=== PATIENT | male | born 1990 | race Two or more races ===

== ENCOUNTER 2021-11-06 04:21 | Emergency (ER) | payer SELFPAY ==
[2021-11-06] VITALS (8 sets, daily range): BP systolic 103–134; BP diastolic 38–84; PULSE 57–77; RESP 16; TEMP 36.8–37.3; O2SAT 98–99; BMI 26.4
--- NOTE | ~2021-11-06 | CT_ITS ---
EXAMINATION: CT HEAD WITHOUT CONTRAST CLINICAL INFORMATION: Fall. Loss of consciousness. COMPARISON: 05/04/2021 TECHNIQUE: Contiguous axial imaging was performed from the skull base to vertex without intravenous administration of contrast. This CT examination was performed using dose optimization techniques as appropriate, variously including the following: *Automated exposure control *Adjustment of mA and/or kV according to patient size (this includes techniques or standardized protocols for targeted exams where dose is matched to indication/reason for exam; i.e. extremities or head) *Use of iterative reconstruction technique DLP: 669 mGy-cm FINDINGS: There is no evidence of acute intracranial hemorrhage or territorial infarction. No abnormal mass effect or midline shift is seen. Ramirez to white matter differentiation is well preserved. No extra-axial fluid collections are identified. The ventricles are normal in size. There is no abnormal attenuation within the brain parenchyma. The osseous structures and soft tissues are normal. The mastoid air cells and visualized portions of the paranasal sinuses are well aerated. CT/CT head/brain wo con IMPRESSION: No acute intracranial pathology.
--- NOTE | 2021-11-06 05:29 | ECG_ITS ---
Test Reason : NAUSEA/VOMITING Blood Pressure : / mmHG Vent. Rate : 063 BPM Atrial Rate : 063 BPM P-R Int : 144 ms QRS Dur : 090 ms QT Int : 386 ms P-R-T Axes : 025 025 015 degrees QTc Int : 395 ms Normal sinus rhythm Normal ECG No previous ECGs available Referred By: Ashly Echols Electronically Signed By:Tayo Salazar
--- NOTE | 2021-11-06 05:37 | ED.GENADULT ---
HPI - General Adult General Chief complaint: General Medical Stated complaint: N/V AFTER TAKING NEW MED Time Seen by Provider: 11/06/21 05:29 Source: patient and EMS Mode of arrival: EMS Limitations: no limitations History of Present Illness HPI narrative: Patient comes to the emergency room via EMS complaining of a syncopal episode and vomiting blood. Patient states that he has had multiple dental procedures over the last couple of weeks, currently taking amoxicillin for a tooth infection. Patient states that today he had multiple episodes of vomiting, 1 of those it was with blood. Patient freaked out and passed out. Hit the floor. Patient states that his grandmother called EMS. Related Data Allergies Allergy/AdvReac Type Severity Reaction Status Date / Time pineapple [Pineapple] Allergy Unknown HIVES Unverified 02/08/20 16:12 Pineapples Allergy Unknown Uncoded 03/10/11 00:00 Review of Systems Review of Systems: Constitutional : No Weight loss, No Fever, No Chills, No Night Sweats, No Fatigue, No Malaise ENT/Mouth : No Hearing loss, No Ear Pain, No Nasal Congestion, No Sinus Pain, No Hoarseness, No sore throat, No Rhinorrhea, No Swallowing Difficulty, complaining of tooth pain, currently on antibiotics, oxacillin. Eyes: No Eye Pain, No Swelling, No Redness, No Foreign Body, No Discharge, No Vision Changes Cardiovascular : No Chest Pain, No SOB, No Dyspnea on Exertion, No Orthopnea, No Edema, No Palpitations Respiratory : No Cough, No Sputum, No Wheezing, No Smoke Exposure, No Dyspnea Gastrointestinal : Complaining of nausea vomiting, No Diarrhea, No Constipation, No abdominal Pain, No Hematochezia, No Melena Genitourinary : no irregular bleeding, No Dysuria, No Urinary Frequency, No Hematuria, No Urinary Incontinence, No Urgency, No Flank Pain, No Urinary Flow Changes, No Hesitancy Musculoskeletal : No joint pain, No Myalgias, No Joint Swelling Skin : No Skin Lesions, No rash Neuro : No Weakness, No Numbness, No Paresthesias, reports a syncopal episode this morning, No Dizziness, No Headache Psych : No Anxiety/Panic, No Depression, No SI/HI/AH/VH, No Social Issues, Heme/Lymph: No Bruising, No Bleeding,No Lymphadenopathy Endocrine : No Polyuria, No Polydipsia, No Temperature Intolerance PMFSH Social History Social History Advance Directives: No Advance Directives Information Provided: Yes Physical Exam ED Vital Signs: Vital Signs - 24 hr 11/06/21 04:27 11/06/21 05:49 11/06/21 05:49 Temperature 99.2 F 98.3 F Pulse Rate 70 65 59 Respiratory Rate 16 16 Blood Pressure 134/60 114/49 L 115/40 L Pulse Oximetry 99 98 Oxygen Delivery Method Room Air Room Air 11/06/21 05:51 11/06/21 05:52 Temperature Pulse Rate 60 77 Respiratory Rate Blood Pressure 113/53 L 103/65 Pulse Oximetry Oxygen Delivery Method BMI result Body Mass Index 26.4 Const Other: Appearance: Alert. Oriented X3. No acute distress. Well-appearing Eyes: Pupils equal, round and reactive to light. ENT: Pharynx normal. Missing several teeth, no abscesses were visualized Neck: Normal inspection. Neck supple. No lymph nodes noted. No crepitus CVS: Normal heart rate and rhythm. Pulses normal. Normal S1 and S2 Respiratory: No respiratory distress. Breath sounds normal. No Wheezing. No rales Abdomen: Soft and nontender. No rigidity. No distention. Skin: Skin warm and dry. Normal skin color. Normal skin turgor. Extremities: No lower extremity edema. No Lacerations. No Rash Neuro: Oriented X 3. No motor deficit. No sensory deficit. Moving all extremities. No slurred speech. CN 2 through 12 grossly intact Psych: calm, cooperative, normal affect Course Course Course Narrative: Symptoms patient had multiple episodes of vomiting secondary to taking amoxicillin. It is possible the forceful vomiting caused pt to movement x1 blood. In the ED patient has not had any episodes of vomiting blood. Is likely that patient had a vasovagal episode Which possibly to cough out. Off patient's labs are pending. sign out given to Dr. Flores Medical Decision Making Lab Data Result diagrams: 11/06/21 05:59 11/06/21 05:59 Labs: Lab Results 11/06/21 11/06/21 11/06/21 Range/Units 05:59 05:59 05:59 WBC 12.1 H (4.8-10.8) X10*3/uL RBC 5.44 (4.60-5.80) X10*6/uL Hgb 15.8 (14.0-18.0) g/dl Hct 46.6 (42.0-52.0) % MCV 85.7 (80.0-98.0) fL MCH 29.0 (27.0-33.0) pg MCHC 33.9 (31.0-36.0) g/dl RDW 11.7 (11.0-16.0) % Plt Count 257 (160-400) X10*3/uL MPV 9.7 (9.4-12.4) fL Immature Gran % (Auto) 0.2 (0.0-0.4) % Neut % (Auto) 64.2 (45-73) % Lymph % (Auto) 15.9 L (20-40) % [place] % (Auto) 6.3 (2-11) % Eos % (Auto) 13.0 H (0-4) % Baso % (Auto) 0.4 (0-2) % Lymph # (Auto) 1.9 (1.2-4.9) X10*3/uL [place] # (Auto) 0.8 (0.1-1.2) X10*3/uL Eos # (Auto) 1.6 H (0.0-0.4) X10*3/uL Baso # (Auto) 0.1 (0.0-0.2) X10*3/uL Abs Immat Gran (auto) 0.03 (0.00-0.03) X10*3/uL Absolute Neuts (auto) 7.8 (2.0-8.3) x10*3/uL Absolute Nucleated RBC 0.000 (0.0-0.012) X10*3/uL Nucleated RBC % (auto) 0.0 (0.0-0.2) /100WBC PT 12.5 (9.9-13.0) SEC INR 1.1 (0.9-1.1) Sodium 138 (135-145) mmol/L Potassium 3.7 (3.3-5.1) mmol/L Chloride 103 (96-108) mmol/L Carbon Dioxide 28 (22-29) mmol/L Anion Gap 11 L (12-20) BUN 12 (9-16) mg/dL Creatinine 1.11 (0.5-1.4) mg/dL Estim Creat Clear Calc 104.5 Estimated GFR > 60 Random Glucose 118 H (60-115) mg/dL Calcium 9.7 (8.4-10.2) mg/dL Total Bilirubin 0.5 (0.0-1.0) mg/dL Direct Bilirubin 0.2 (0.0-0.5) mg/dL AST 12 (5-37) U/L ALT 31 (0-40) U/L Alkaline Phosphatase 77 (39-117) U/L Troponin I High Sens (<3.5-35.0) ng/L Total Protein 7.4 (6.5-8.0) g/dL Albumin 4.5 (3.5-5.0) g/dL Ethyl Alcohol mg/dL 11/06/21 11/06/21 Range/Units 05:59 05:59 WBC (4.8-10.8) X10*3/uL RBC (4.60-5.80) X10*6/uL Hgb (14.0-18.0) g/dl Hct (42.0-52.0) % MCV (80.0-98.0) fL MCH (27.0-33.0) pg MCHC (31.0-36.0) g/dl RDW (11.0-16.0) % Plt Count (160-400) X10*3/uL MPV (9.4-12.4) fL Immature Gran % (Auto) (0.0-0.4) % Neut % (Auto) (45-73) % Lymph % (Auto) (20-40) % [place] % (Auto) (2-11) % Eos % (Auto) (0-4) % Baso % (Auto) (0-2) % Lymph # (Auto) (1.2-4.9) X10*3/uL [place] # (Auto) (0.1-1.2) X10*3/uL Eos # (Auto) (0.0-0.4) X10*3/uL Baso # (Auto) (0.0-0.2) X10*3/uL Abs Immat Gran (auto) (0.00-0.03) X10*3/uL Absolute Neuts (auto) (2.0-8.3) x10*3/uL Absolute Nucleated RBC (0.0-0.012) X10*3/uL Nucleated RBC % (auto) (0.0-0.2) /100WBC PT (9.9-13.0) SEC INR (0.9-1.1) Sodium (135-145) mmol/L Potassium (3.3-5.1) mmol/L Chloride (96-108) mmol/L Carbon Dioxide (22-29) mmol/L Anion Gap (12-20) BUN (9-16) mg/dL Creatinine (0.5-1.4) mg/dL Estim Creat Clear Calc Estimated GFR Random Glucose (60-115) mg/dL Calcium (8.4-10.2) mg/dL Total Bilirubin (0.0-1.0) mg/dL Direct Bilirubin (0.0-0.5) mg/dL AST (5-37) U/L ALT (0-40) U/L Alkaline Phosphatase (39-117) U/L Troponin I High Sens < 3.5 (<3.5-35.0) ng/L Total Protein (6.5-8.0) g/dL Albumin (3.5-5.0) g/dL Ethyl Alcohol < 10 mg/dL Discharge Plan Discharge Clinical Impression: Syncope, vasovagal Patient Disposition: Still a Patient
[2021-11-06] MEDS: 0.9 % Sodium Chloride 1,000 ML 999 ML IVCONT (06:02)
[2021-11-06] MEDS: ondansetron HCL 4 MG/2 ML VIAL IVPUSH (06:03)
[2021-11-06] MEDS: Pantoprazole Sodium 40 MG/10 ML VIAL IVPUSH (06:03)
[2021-11-06 06:04] LABS: Basophils Absolute Auto 0.1 X10*3/uL (0.0-0.2); Basophils Percent Auto 0.4 % (0-2); Eosinophils Absolute Auto 1.6 X10*3/uL (0.0-0.4); Hematocrit 46.6 % (42.0-52.0); Hemoglobin 15.8 g/dl (14.0-18.0); Imm Gran Abs Auto 0.03 X10*3/uL (0.00-0.03); Imm Gran Pct Auto 0.2 % (0.0-0.4); Lymphocytes Absolute Auto 1.9 X10*3/uL (1.2-4.9); Lymphocytes Percent Auto 15.9 % (20-40); MANUAL DIFF FLAG NO; Mean Corpuscular HGB Conc 33.9 g/dl (31.0-36.0); Mean Corpuscular Volume 85.7 fL (80.0-98.0); Mean Platelet Volume 9.7 fL (9.4-12.4); Monocytes Absolute Auto 0.8 X10*3/uL (0.1-1.2); Monocytes Percent Auto 6.3 % (2-11); Neutrophils Absolute Auto 7.8 x10*3/uL (2.0-8.3); Neutrophils Percent Auto 64.2 % (45-73); Platelet Count 257 X10*3/uL (160-400); Red Blood Count 5.44 X10*6/uL (4.60-5.80); Red Cell Distribution Width 11.7 % (11.0-16.0); White Blood Count 12.1 X10*3/uL (4.8-10.8)
[2021-11-06 06:11] LABS: INTERNATIONAL NORM RATIO 1.1 (0.9-1.1); Prothrombin Time 12.5 SEC (9.9-13.0)
[2021-11-06 06:20] LABS: Ethanol < 10 mg/dL
[2021-11-06 06:27] LABS: Troponin-I High Sensitivity < 3.5 ng/L (<3.5-35.0)
[2021-11-06 06:28] LABS: Alanine Aminotransferase 31 U/L (0-40); Albumin Level 4.5 g/dL (3.5-5.0); Alkaline Phosphatase 77 U/L (39-117); Anion Gap 11 (12-20); Aspartate Amino Transferase 12 U/L (5-37); Bilirubin Direct 0.2 mg/dL (0.0-0.5); Bilirubin Total 0.5 mg/dL (0.0-1.0); Blood Urea Nitrogen 12 mg/dL (9-16); Calcium 9.7 mg/dL (8.4-10.2); Carbon Dioxide 28 mmol/L (22-29); Chloride 103 mmol/L (96-108); Creatinine Clr Calc Pharmacy 104.5; Estimated Glomerular Filt Rate > 60; Glucose Random 118 mg/dL (60-115); Potassium 3.7 mmol/L (3.3-5.1); Sodium 138 mmol/L (135-145); Total Protein 7.4 g/dL (6.5-8.0)
== END 2021-11-06 07:55 | disposition home or self-care (01) ==
PROVIDERS: Emergency Provider Emergency Medicine
DX: R55 Syncope and collapse (principal); R11.2 Nausea with vomiting, unspecified
CPT/HCPCS: 36415; 70450; 80048; 80076; 82077; 84484; 85025; 85610; 93005; 96361; 96374; 96375; 99284; J2405

== ENCOUNTER → 2022-01-30 09:58 | Outpatient (BNVA) | payer MEDICAID, SELFPAY | PROVIDERS: Visit Provider Nurse Practitioner Psychiatric/Mental Health | DX: Z51.81 Encounter for therapeutic drug level monitoring (principal); F11.20 Opioid dependence, uncomplicated; F14.10 Cocaine abuse, uncomplicated | CPT/HCPCS: 99212 ==

== ENCOUNTER → 2022-02-06 10:10 | Outpatient (BNVA) | payer MEDICAID, SELFPAY | PROVIDERS: Visit Provider Nurse Practitioner Psychiatric/Mental Health | DX: F11.20 Opioid dependence, uncomplicated (principal) | CPT/HCPCS: 80305; 99212 ==

== ENCOUNTER → 2022-02-13 10:03 | Outpatient (BNVA) | payer MEDICAID, SELFPAY | PROVIDERS: Visit Provider Nurse Practitioner Psychiatric/Mental Health | DX: F11.20 Opioid dependence, uncomplicated (principal); F14.10 Cocaine abuse, uncomplicated; Z51.81 Encounter for therapeutic drug level monitoring; Z79.899 Other long term (current) drug therapy | CPT/HCPCS: 80305; 99212 ==

== ENCOUNTER → 2022-02-20 11:29 | Outpatient (BNVA) | payer MEDICAID, SELFPAY | PROVIDERS: Visit Provider Nurse Practitioner Psychiatric/Mental Health | DX: F11.20 Opioid dependence, uncomplicated (principal) | CPT/HCPCS: 80305; 99212 ==

== ENCOUNTER → 2022-02-27 11:07 | Outpatient (BNVA) | payer MEDICAID, SELFPAY | PROVIDERS: Visit Provider Nurse Practitioner Psychiatric/Mental Health | DX: Z51.81 Encounter for therapeutic drug level monitoring (principal); F11.20 Opioid dependence, uncomplicated | CPT/HCPCS: 80305; 99212 ==

== ENCOUNTER → 2022-03-09 11:00 | Outpatient (BNVA) | payer MEDICAID, SELFPAY | PROVIDERS: Visit Provider Nurse Practitioner Psychiatric/Mental Health | DX: Z51.81 Encounter for therapeutic drug level monitoring (principal); F11.90 Opioid use, unspecified, uncomplicated | CPT/HCPCS: 99212 ==

== ENCOUNTER → 2022-03-20 11:41 | Outpatient (BNVA) | payer MEDICAID, SELFPAY | PROVIDERS: Visit Provider Nurse Practitioner Psychiatric/Mental Health | DX: Z51.81 Encounter for therapeutic drug level monitoring (principal); F11.20 Opioid dependence, uncomplicated | CPT/HCPCS: 80305; 99212 ==

== ENCOUNTER → 2022-04-02 09:02 | Outpatient (BNVA) | payer MEDICAID, SELFPAY | PROVIDERS: Visit Provider Nurse Practitioner Psychiatric/Mental Health | DX: Z51.81 Encounter for therapeutic drug level monitoring (principal); F11.20 Opioid dependence, uncomplicated | CPT/HCPCS: 99212 ==

== ENCOUNTER → 2022-04-13 10:09 | Outpatient (BNVA) | payer MEDICAID, SELFPAY | PROVIDERS: Visit Provider Nurse Practitioner Psychiatric/Mental Health | DX: F11.20 Opioid dependence, uncomplicated (principal); Z51.81 Encounter for therapeutic drug level monitoring; Z79.01 Long term (current) use of anticoagulants | CPT/HCPCS: 99212 ==

== ENCOUNTER → 2022-04-29 11:32 | Outpatient (BNVA) | payer MEDICAID, SELFPAY | PROVIDERS: Visit Provider Nurse Practitioner Psychiatric/Mental Health | DX: F11.20 Opioid dependence, uncomplicated (principal) | CPT/HCPCS: 80305; 99212 ==

== ENCOUNTER → 2022-05-15 11:42 | Outpatient (BNVA) | payer MEDICAID, SELFPAY | PROVIDERS: Visit Provider Nurse Practitioner Psychiatric/Mental Health | DX: F11.20 Opioid dependence, uncomplicated (principal) | CPT/HCPCS: 99212 ==

== ENCOUNTER → 2022-06-05 13:18 | Outpatient (BNVA) | payer MEDICAID, SELFPAY | PROVIDERS: Visit Provider Nurse Practitioner Psychiatric/Mental Health | DX: F11.20 Opioid dependence, uncomplicated (principal); F14.10 Cocaine abuse, uncomplicated | CPT/HCPCS: 99212 ==

== ENCOUNTER → 2022-06-26 13:18 | Outpatient (BNVA) | payer MEDICAID, SELFPAY | PROVIDERS: Visit Provider Nurse Practitioner Psychiatric/Mental Health | DX: F11.20 Opioid dependence, uncomplicated (principal); F14.10 Cocaine abuse, uncomplicated; F32.A Depression, unspecified; F41.1 Generalized anxiety disorder | CPT/HCPCS: 99212 ==

== ENCOUNTER → 2022-07-17 14:37 | Outpatient (BNVA) | payer MEDICAID, SELFPAY | PROVIDERS: Visit Provider Nurse Practitioner Psychiatric/Mental Health | DX: F11.20 Opioid dependence, uncomplicated (principal); F14.10 Cocaine abuse, uncomplicated; F32.A Depression, unspecified; F41.1 Generalized anxiety disorder | CPT/HCPCS: 80305; 99212 ==

== ENCOUNTER 2022-09-01 13:30 | Emergency (ER) | payer MEDICAID, SELFPAY ==
[2022-09-01 13:38] VITALS: BP 110/57; PULSE 78; RESP 18; TEMP 36.6; O2SAT 98; BMI 33.5
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
[2022-09-01] MEDS: Diphth,Pertus(ACell),Tet Adult 0.5 ML SYRINGE IM (13:51)
== END 2022-09-01 14:36 | disposition home or self-care (01) ==
PROVIDERS: Emergency Provider Emergency Medicine
DX: S61.412A Laceration without foreign body of left hand, initial encounter (principal); S60.512A Abrasion of left hand, initial encounter; X99.1XXA Assault by knife, initial encounter; Y93.9 Activity, unspecified; Y92.9 Unspecified place or not applicable; Y99.9 Unspecified external cause status; Z79.899 Other long term (current) drug therapy; Z23 Encounter for immunization
CPT/HCPCS: 12002; 90471; 90715; 99282; 99284

== ENCOUNTER → 2022-09-18 15:12 | Outpatient (BNVA) | payer MEDICAID, SELFPAY | PROVIDERS: Visit Provider Nurse Practitioner Psychiatric/Mental Health | DX: F11.90 Opioid use, unspecified, uncomplicated (principal); F14.10 Cocaine abuse, uncomplicated; F32.A Depression, unspecified; F41.1 Generalized anxiety disorder; Z79.899 Other long term (current) drug therapy; Z51.81 Encounter for therapeutic drug level monitoring | CPT/HCPCS: 99212 ==

== ENCOUNTER → 2022-11-10 14:29 | Outpatient (BNVA) | payer MEDICAID, SELFPAY | PROVIDERS: Visit Provider Nurse Practitioner Psychiatric/Mental Health | DX: F11.20 Opioid dependence, uncomplicated (principal); F41.1 Generalized anxiety disorder; Z79.899 Other long term (current) drug therapy | CPT/HCPCS: 80305; 99212 ==

== ENCOUNTER 2023-01-05 16:23 | Outpatient (AMB) | payer MEDICAID, SELFPAY ==
--- NOTE | 2023-01-05 16:23 | MHC.OFFVIS ---
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 Reviewed medication, dosing, side effects and goals of treatment He identifies stress with parents as one motivator for switching to the injection as they often question his engagement in treatment He is working FT at [employer]. Scheduled for 18 [employer] drivers test later this week Sleep has improved, mood has improved--extended vacation in [place] and [facility] Medical History (Updated 11/12/22 @ 10:26 by Lela Marrufo CNP) Opioid use disorder Review of Systems Const Reports as per HPI and Reports no additional complaints Physical Exam Vital Signs: Last Vital Signs Pulse 71 01/05/23 16:29 BP 110/72 01/05/23 16:29 Pulse Ox 98 01/05/23 16:29 Oxygen Delivery Method Room Air 01/05/23 16:29 Const General: cooperative and healthy appearing Psych Appearance: well kempt Speech and movement: Clear speech present Affect: normal affect Attitude: cooperative Thought process: Normal thought process present Thought content: Normal thought content present Insight: Good insight present (Psych) Judgement: Good judgement present (Psych) Assessment & Plan Assessment & Plan (1) Opioid use disorder, severe, in early remission: Code(s): F11.21 - Opioid dependence, in remission Plan: continue suboxone at current dose relaspe prevention discussion follow up 4 weeks sublocade rx ordered (2) KEO (generalized anxiety disorder): Code(s): F41.1 - Generalized anxiety disorder Plan: continue sertraline at 50mg QD continue hydroxyzine PRN and trazodone Medications: New buprenorphine ER (Sublocade) 300 mg (1.5 mL) subcut .q 4 weeks 1.5 mL 1RF Refilled buprenorphine HCl 8 mg sublingual TID 90 tabs 0RF Coding Level of Care Code Est Pt Level 3 (95042) Diagnoses Opioid use disorder, severe, in early remission F11.21 KEO (generalized anxiety disorder) F41.1
[2023-01-05 16:29] VITALS: BP 110/72; PULSE 71; O2SAT 98
== END 2023-01-05 16:50 | disposition home or self-care (01) ==
LOC: HO.HCC 16:23
PROVIDERS: Visit Provider Nurse Practitioner Psychiatric/Mental Health
DX: F11.21 Opioid dependence, in remission (principal); F41.1 Generalized anxiety disorder
CPT/HCPCS: 99213

== ENCOUNTER → 2023-01-05 16:23 | Outpatient (BNVA) | payer MEDICAID, SELFPAY | PROVIDERS: Visit Provider Nurse Practitioner Psychiatric/Mental Health | DX: F11.20 Opioid dependence, uncomplicated (principal); F41.1 Generalized anxiety disorder; Z79.899 Other long term (current) drug therapy | CPT/HCPCS: 99212; 99213 ==

== ENCOUNTER 2023-02-02 13:29 | Outpatient (AMB) | payer MEDICAID, SELFPAY ==
--- NOTE | 2023-02-02 13:30 | AM.OFFVISNUR ---
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
[2023-02-02 13:44] VITALS: BP 124/80; PULSE 78; O2SAT 94
--- NOTE | 2023-02-02 13:44 | MHC.OFFVIS ---
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
--- NOTE | 2023-02-02 13:47 | MHC.OFFVIS ---
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: No Allergies pineapple [Pineapple] Allergy (Unknown, Unverified 02/02/23 13:45) HIVES naloxone Adverse Reaction (Intermediate, Verified 02/02/23 13:45) Vomiting Pineapples Allergy (Unknown, Uncoded 02/02/23 13:45) Unknown [facility] Medical History (Updated 11/12/22 @ 10:26 by Lela Marrufo CNP) Opioid use disorder Physical Exam Vital Signs: Last Vital Signs Pulse 78 02/02/23 13:44 BP 124/80 02/02/23 13:44 Pulse Ox 94 02/02/23 13:44 Oxygen Delivery Method Room Air 02/02/23 13:44 Results AMB 14 Panel Urine Drug Screen Urine Marijuana (THC) Positive Last Edit by Jaki Toribio CMA on 02/02/23 13:46 Urine Cocaine Negative Last Edit by Jaki Toribio CMA on 02/02/23 13:46 Urine Morphine Negative Last Edit by Jaki Toribio CMA on 02/02/23 13:46 Urine Methamphetamine Negative Last Edit by Jaki Toribio CMA on 02/02/23 13:46 Urine Amphetamine Negative Last Edit by Jaki Toribio CMA on 02/02/23 13:46 Urine Benzodiazepine Negative Last Edit by Jaki Toribio CMA on 02/02/23 13:46 Urine Barbiturates Negative Last Edit by Jaki Toribio CMA on 02/02/23 13:46 Urine Methadone Negative Last Edit by Jaki Toribio CMA on 02/02/23 13:46 Urine Buprenorphine Positive Last Edit by Jaki Toribio CMA on 02/02/23 13:46 Urine Tricyclic Antidepressant Negative Last Edit by Jaki Toribio CMA on 02/02/23 13:46 Urine MDMA Negative Last Edit by Jaki Toribio CMA on 02/02/23 13:46 Urine Oxycodone Negative Last Edit by aJki Toribio CMA on 02/02/23 13:46 Urine Phencyclidine Negative Last Edit by Jaki Toribio CMA on 02/02/23 13:46 Urine Propoxyphene Negative Last Edit by Jaki Toribio CMA on 02/02/23 13:46 Results Reviewed Results Reviewed: Laboratory Last Values POC Urine Buprenorphine Positive 02/02/23 13:34 POC Urine Morphine Negative 02/02/23 13:34 POC Urine Oxycodone Negative 02/02/23 13:34 POC Urine Methadone Negative 02/02/23 13:34 POC Urine Propoxyphene Negative 02/02/23 13:34 POC Urine Barbiturates Negative 02/02/23 13:34 POC U Tricyclic Antidpr Negative 02/02/23 13:34 POC Urine PCP Negative 02/02/23 13:34 POC Ur Amphetamines Negative 02/02/23 13:34 POC Ur Methamphetamine Negative 02/02/23 13:34 POC Urine MDMA Negative 02/02/23 13:34 POC Ur Benzodiazepine Negative 02/02/23 13:34 POC Urine Cocaine Negative 02/02/23 13:34 POC Ur Marijuana (THC) Positive 02/02/23 13:34 Assessment & Plan Assessment & Plan Orders: Orders AMB 14 Panel Urine Drug Screen Today Z51.81 - Encounter for therapeutic drug level monitoring Coding
--- NOTE | 2023-02-02 13:50 | A.OFFVIS_ITS ---
Intake Vital Signs 02/02/23 13:44 BP 124/80 Blood Pressure Location Lt radial Position Sitting Pulse 78 Pulse Source Pulse Oximeter Pulse Oximetry (%) 94 Oxygen Delivery Method Room Air Intake Visit Reasons: Sub Inj Allergies pineapple [Pineapple] Allergy (Unknown, Unverified 02/02/23 13:45) HIVES naloxone Adverse Reaction (Intermediate, Verified 02/02/23 13:45) Vomiting Pineapples Allergy (Unknown, Uncoded 02/02/23 13:45) Unknown HPI Sub Inj HPI Details Patient presents for OUD treatment follow-up. Was scheduled to get the injection today however did not provide consent so medication was not delivered. Patient expressing frustration and challenges with his mother who he states will often accuse him using substances. Patient reports that he has been in recovery for over 1 year now and continues to remain committed to his recovery. Will not be getting the injection as his family does not want him to get the injection. Discussed supports for himself--he states he will be starting therapy soon. [facility] Medical History (Updated 11/12/22 @ 10:26 by Lela Marrufo CNP) Opioid use disorder Review of Systems Const Reports as per HPI and Reports no additional complaints Physical Exam Vital Signs: Last Vital Signs Pulse 78 02/02/23 13:44 BP 124/80 02/02/23 13:44 Pulse Ox 94 02/02/23 13:44 Oxygen Delivery Method Room Air 02/02/23 13:44 Const General: cooperative and healthy appearing Psych Appearance: well kempt Speech and movement: Clear speech present Affect: normal affect Attitude: cooperative Thought process: Normal thought process present Thought content: Normal thought content present Insight: Good insight present (Psych) Judgement: Good judgement present (Psych) Results AMB 14 Panel Urine Drug Screen Urine Marijuana (THC) Positive Last Edit by Jaki Toribio CMA on 02/02/23 13:46 Urine Cocaine Negative Last Edit by Jaki Toribio CMA on 02/02/23 13:46 Urine Morphine Negative Last Edit by Jaki Toribio CMA on 02/02/23 13:46 Urine Methamphetamine Negative Last Edit by Jaki Toribio CMA on 02/02/23 13:46 Urine Amphetamine Negative Last Edit by Jaki Toribio CMA on 02/02/23 13:4 6 Urine Benzodiazepine Negative Last Edit by Jaki Toribio CMA on 02/02/23 13:46 Urine Barbiturates Negative Last Edit by Jaki Toribio CMA on 02/02/23 13: 46 Urine Methadone Negative Last Edit by Jaki Toribio CMA on 02/02/23 13:46 Urine Buprenorphine Positive Last Edit by Jaki Toribio CMA on 02/02/23 13 :46 Urine Tricyclic Antidepressant Negative Last Edit by Jaki Toribio CMA on 02/02/23 13:46 Urine MDMA Negative Last Edit by Jaki Toribio CMA on 02/02/23 13:46 Urine Oxycodone Negative Last Edit by Jaki Toribio CMA on 02/02/23 13:46 Urine Phencyclidine Negative Last Edit by Jaki Toribio CMA on 02/02/23 13 :46 Urine Propoxyphene Negative Last Edit by Jaki Toribio CMA on 02/02/23 13: 46 Results Reviewed Results Reviewed: Laboratory Last Values POC Urine Buprenorphine Positive 02/02/23 13:34 POC Urine Morphine Negative 02/02/23 13:34 POC Urine Oxycodone Negative 02/02/23 13:34 POC Urine Methadone Negative 02/02/23 13:34 POC Urine Propoxyphene Negative 02/02/23 13:34 POC Urine Barbiturates Negative 02/02/23 13:34 POC U Tricyclic Antidpr Negative 02/02/23 13:34 POC Urine PCP Negative 02/02/23 13:34 POC Ur Amphetamines Negative 02/02/23 13:34 POC Ur Methamphetamine Negative 02/02/23 13:34 POC Urine MDMA Negative 02/02/23 13:34 POC Ur Benzodiazepine Negative 02/02/23 13:34 POC Urine Cocaine Negative 02/02/23 13:34 POC Ur Marijuana (THC) Positive 02/02/23 13:34 Assessment & Plan Assessment & Plan (1) Opioid use disorder, severe, in early remission: Code(s): F11.21 - Opioid dependence, in remission Plan: * continue suboxone at current dose * relaspe prevention discussion * follow up 4 weeks (2) KEO (generalized anxiety disorder): Code(s): F41.1 - Generalized anxiety disorder Plan: * continue sertraline at 50mg QD * continue hydroxyzine PRN and trazodone Orders: Orders AMB 14 Panel Urine Drug Screen 02/02/23 Z51.81 - Encounter for therapeutic drug level monitoring Medications: Refilled buprenorphine HCl 8 mg sublingual TID 90 tabs 0RF Coding Level of Care Code Est Pt Level 3 (65120) Diagnoses Opioid use disorder, severe, in early remission F11.21 KEO (generalized anxiety disorder) F41.1
== END 2023-02-02 14:07 | disposition home or self-care (01) ==
LOC: HO.HCC 13:29
PROVIDERS: Visit Provider Nurse Practitioner Psychiatric/Mental Health
DX: F11.21 Opioid dependence, in remission (principal); F41.1 Generalized anxiety disorder
CPT/HCPCS: 99213

== ENCOUNTER → 2023-02-02 13:29 | Outpatient (BNVA) | payer MEDICAID, SELFPAY | DX: F11.20 Opioid dependence, uncomplicated (principal); F41.1 Generalized anxiety disorder; Z79.899 Other long term (current) drug therapy | CPT/HCPCS: 80305; 99212 ==

== ENCOUNTER 2023-03-02 15:16 | Outpatient (AMB) | payer MEDICAID, SELFPAY ==
[2023-03-02 15:25] VITALS: BP 124/82; PULSE 88; O2SAT 96
--- NOTE | 2023-03-02 15:25 | MHC.OFFVIS ---
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: No Allergies pineapple [Pineapple] Allergy (Unknown, Unverified 03/02/23 15:26) HIVES naloxone Adverse Reaction (Intermediate, Verified 03/02/23 15:26) Vomiting Pineapples Allergy (Unknown, Uncoded 03/02/23 15:26) Unknown Do you need a note to return to daycare/school/sports/work: No HPI mat visit HPI Details Patient presents for follow up Currently prescribed suboxone 8mg TID Doing well with recovery --working Will be presenting at [facility] in March [facility] Medical History (Updated 11/12/22 @ 10:26 by Lela Marrufo CNP) Opioid use disorder Review of Systems Const Reports as per HPI and Reports no additional complaints Physical Exam Vital Signs: Last Vital Signs Pulse 88 03/02/23 15:25 BP 124/82 03/02/23 15:25 Pulse Ox 96 03/02/23 15:25 Oxygen Delivery Method Room Air 03/02/23 15:25 Const General: cooperative and healthy appearing Psych Appearance: well kempt Speech and movement: Clear speech present Affect: normal affect Attitude: cooperative Thought process: Normal thought process present Thought content: Normal thought content present Insight: Good insight present (Psych) Judgement: Good judgement present (Psych) Assessment & Plan Assessment & Plan (1) Opioid use disorder, severe, in early remission: Code(s): F11.21 - Opioid dependence, in remission Plan: continue suboxone at current dose relaspe prevention discussion follow up 4 weeks (2) KEO (generalized anxiety disorder): Code(s): F41.1 - Generalized anxiety disorder Plan: continue hydroxyzine PRN and trazodone Medications: New polyethylene glycol 3350 17 grams PO DAILY PRN 119 grams 0RF constipation Refilled buprenorphine HCl 8 mg sublingual TID 90 tabs 0RF Discontinued sertraline Discontinued Reason: Patient no longer taking 50 mg PO DAILY 30 tabs 1RF Coding Level of Care Code Est Pt Level 3 (80152) Diagnoses Opioid use disorder, severe, in early remission F11.21 KEO (generalized anxiety disorder) F41.1
== END 2023-03-02 15:54 | disposition home or self-care (01) ==
PROVIDERS: Visit Provider Nurse Practitioner Psychiatric/Mental Health
DX: F11.21 Opioid dependence, in remission (principal); F41.1 Generalized anxiety disorder
CPT/HCPCS: 99213

== ENCOUNTER → 2023-03-02 15:16 | Outpatient (BNVA) | payer MEDICAID, SELFPAY | PROVIDERS: Visit Provider Nurse Practitioner Psychiatric/Mental Health | DX: F11.20 Opioid dependence, uncomplicated (principal); F41.1 Generalized anxiety disorder | CPT/HCPCS: 99212 ==

== ENCOUNTER 2023-03-28 00:19 | Emergency (ER) | payer MEDICAID, SELFPAY ==
--- NOTE | 2023-03-28 | ECG_ITS ---
Test Reason : CHEST PAIN Blood Pressure : / mmHG Vent. Rate : 103 BPM Atrial Rate : 103 BPM P-R Int : 142 ms QRS Dur : 090 ms QT Int : 344 ms P-R-T Axes : 031 004 006 degrees QTc Int : 450 ms Sinus tachycardia Otherwise normal ECG When compared with ECG of 06-NOV-2021 05:33, Vent. rate has increased BY 40 BPM QT has lengthened Referred By: Generic ED Physician Electronically Signed By:CATE BOND MD
--- NOTE | 2023-03-28 00:23 | MHC.EDTECH ---
This Tech called the Patient for his EKG in Triage, Pt was not in the waiting room. manager service desk stated he walked outside. Tech followed to find patient and he was already in the Patient Parking lot, unable to hear me.
[2023-03-28 00:25] VITALS: BP 151/81; PULSE 92; RESP 18; TEMP 36.8; O2SAT 97; BMI 34.0
[2023-03-28 00:43] LABS: MANUAL DIFF FLAG NO
[2023-03-28 00:45] LABS: Basophils Absolute Auto 0.1 X10*3/uL (0.0-0.2); Basophils Percent Auto 0.9 % (0-2); Eosinophils Absolute Auto 0.5 X10*3/uL (0.0-0.4); Eosinophils Percent Auto 5.2 % (0-4); Hematocrit 42.8 % (42.0-52.0); Hemoglobin 14.8 g/dl (14.0-18.0); Imm Gran Abs Auto 0.01 X10*3/uL (0.00-0.03); Imm Gran Pct Auto 0.1 % (0.0-0.4); Lymphocytes Absolute Auto 2.6 X10*3/uL (1.2-4.9); Mean Corpuscular HGB Conc 34.6 g/dl (31.0-36.0); Mean Corpuscular Hemoglobin 29.5 pg (27.0-33.0); Mean Corpuscular Volume 85.4 fL (80.0-98.0); Mean Platelet Volume 10.2 fL (9.4-12.4); Monocytes Absolute Auto 0.4 X10*3/uL (0.1-1.2); Monocytes Percent Auto 4.4 % (2-11); Neutrophils Absolute Auto 5.7 x10*3/uL (2.0-8.3); Neutrophils Percent Auto 61.4 % (45-73); Platelet Count 248 X10*3/uL (160-400); Red Blood Count 5.01 X10*6/uL (4.60-5.80); Red Cell Distribution Width 11.9 % (11.0-16.0); White Blood Count 9.2 X10*3/uL (4.8-10.8)
[2023-03-28 01:01] LABS: Alanine Aminotransferase 21 U/L (0-40); Albumin Level 4.7 g/dL (3.5-5.0); Alkaline Phosphatase 92 U/L (39-117); Anion Gap 14 (12-20); Aspartate Amino Transferase 20 U/L (5-37); Bilirubin Total 0.5 mg/dL (0.0-1.0); Blood Urea Nitrogen 12 mg/dL (9-16); Calcium 10.1 mg/dL (8.4-10.2); Carbon Dioxide 27 mmol/L (22-29); Chloride 103 mmol/L (96-108); Creatinine Clr Calc Pharmacy 136.7; Estimated Glomerular Filt Rate > 60; Glucose Random 150 mg/dL (60-115); Potassium 3.6 mmol/L (3.3-5.1); Sodium 140 mmol/L (135-145)
--- NOTE | 2023-03-28 01:01 | ED.CHESTPAIN ---
HPI - Chest Pain General Chief Complaint: Chest Pain Stated Complaint: Pt believes to be having heart attack Time Seen by Provider: 03/28/23 01:00 EST Source: patient Mode of arrival: ambulatory Limitations: no limitations History of Present Illness HPI narrative: Patient with history of anxiety apparently smoked marijuana and felt heart was beating fast at 23:00 lasted for only few minutes no chest pain or shortness of breath had similar episodes in the past when he gets anxious denies any cocaine use Related Data Previous Rx's Medication Instructions Recorded sennosides 8.6 mg capsule (senna) 8.6 mg PO DAILY #30 caps 02/13/22 docusate sodium 50 mg capsule 50 mg PO DAILY PRN constipation 09/18/22 (Colace Clear) #30 caps trazodone 50 mg tablet 75 mg (1.5 x 50 mg) PO BEDTIME PRN 09/18/22 sleep #45 tabs hydroxyzine HCl 25 mg tablet 25 mg PO TID PRN anxiety #90 tabs 11/10/22 buprenorphine 300 mg/1.5 mL 300 mg (1.5 mL) subcut .q 4 weeks 01/06/23 solution,exten.rel.subcutaneous #1.5 mL syringe (Sublocade) buprenorphine HCl 8 mg sublingual 8 mg sublingual TID #90 tabs 03/02/23 tablet polyethylene glycol 3350 17 17 g PO DAILY PRN constipation 03/02/23 gram/dose oral powder #119 grams Allergies Allergy/AdvReac Type Severity Reaction Status Date / Time pineapple [Pineapple] Allergy Unknown HIVES Verified 03/28/23 00:39 naloxone AdvReac Intermediate Vomiting Verified 03/28/23 00:39 Pineapples Allergy Unknown Unknown Uncoded 03/02/23 15:26 Review of Systems Review of Systems: Yes all other systems are reviewed and are negative PMFSH Past Medical History Medical History (Updated 03/28/23 @ 01:19 EST by Jaron Linares MD) Opioid use disorder Social History Social History Advance Directives: No Advance Directives Information Provided: No Physical Exam Vital Signs: Vital Signs: Last Vital Signs Temp 98.2 F 03/28/23 00:25 Pulse 92 03/28/23 00:25 Resp 18 03/28/23 00:25 BP 151/81 H 03/28/23 00:25 Pulse Ox 97 03/28/23 00:25 O2 Del Method Room Air 03/28/23 00:25 BMI result Body Mass Index 34.0 Appearance: Alert. Oriented X3. No acute distress. Eyes: PERRLA, No Nystagmus ENT: Pharynx normal. Oral Mucosa moist Neck: Normal inspection. Neck supple. CVS: Normal heart rate and rhythm. Pulses normal. Respiratory: No respiratory distress. Equal air entry bilateral, no wheezing/rales/rhonchi Abdomen: Soft and nontender. Bowel sounds are present, Skin: Skin warm and dry. Normal skin color. Normal skin turgor. Extremities: No lower extremity edema. No calf tenderness Neuro: Oriented X 3. Medical Decision Making Differential Diagnosis Differential Diagnoses: The differential diagnosis associated with the presentation includes Anxiety/sinus tachycardia/substance abuse Admission/Observation Consideration of admission/observation: Escalation of care including admission/observation considered Lab Data MDM Lab Attestation statement: I reviewed the patient's lab results. 03/28/23 00:36 03/28/23 00:36 Labs: Lab Results 03/28/23 Range/Units 00:36 WBC 9.2 (4.8-10.8) X10*3/uL RBC 5.01 (4.60-5.80) X10*6/uL Hgb 14.8 (14.0-18.0) g/dl Hct 42.8 (42.0-52.0) % MCV 85.4 (80.0-98.0) fL MCH 29.5 (27.0-33.0) pg MCHC 34.6 (31.0-36.0) g/dl RDW 11.9 (11.0-16.0) % Plt Count 248 (160-400) X10*3/uL MPV 10.2 (9.4-12.4) fL Immature Gran % (Auto) 0.1 (0.0-0.4) % Neut % (Auto) 61.4 (45-73) % Lymph % (Auto) 28.0 (20-40) % [place] % (Auto) 4.4 (2-11) % Eos % (Auto) 5.2 H (0-4) % Baso % (Auto) 0.9 (0-2) % Lymph # (Auto) 2.6 (1.2-4.9) X10*3/uL [place] # (Auto) 0.4 (0.1-1.2) X10*3/uL Eos # (Auto) 0.5 H (0.0-0.4) X10*3/uL Baso # (Auto) 0.1 (0.0-0.2) X10*3/uL Abs Immat Gran (auto) 0.01 (0.00-0.03) X10*3/uL Absolute Neuts (auto) 5.7 (2.0-8.3) x10*3/uL Absolute Nucleated RBC 0.000 (0.0-0.012) X10*3/uL Nucleated RBC % (auto) 0.0 (0.0-0.2) /100WBC Sodium 140 (135-145) mmol/L Potassium 3.6 (3.3-5.1) mmol/L Chloride 103 (96-108) mmol/L Carbon Dioxide 27 (22-29) mmol/L Anion Gap 14 (12-20) BUN 12 (9-16) mg/dL Creatinine 0.94 (0.5-1.4) mg/dL Estim Creat Clear Calc 136.7 Estimated GFR > 60 Random Glucose 150 H (60-115) mg/dL Calcium 10.1 (8.4-10.2) mg/dL Total Bilirubin 0.5 (0.0-1.0) mg/dL AST 20 (5-37) U/L ALT 21 (0-40) U/L Alkaline Phosphatase 92 (39-117) U/L Troponin I High Sens < 2.7 (<3.5-35.0) ng/L Total Protein 8.0 (6.5-8.0) g/dL Albumin 4.7 (3.5-5.0) g/dL COVID-19 (HUGO) Negative (Negative) COVID-19 Clin Com See Note Influenza Type A (BREE) Negative (Negative) Influenza Type B (BREE) Negative (Negative) Influenza A & B Note See Note Independent Interpretation I performed an independent interpretation of an: EKG Interpretation: Sinus tachycardia heart rate 103 beats per minute normal intervals normal no acute STT wave changes no ischemia Discharge Plan Discharge Clinical Impression: KEO (generalized anxiety disorder), Heart palpitations Patient Disposition: Home, Self-Care Instructions: Heart Palpitations (DC), Generalized Anxiety Disorder (ED) Additional Instructions: Take your medications as prescribed Avoid smoking/marijuana use Prescriptions: No Action senna 8.6 mg capsule 8.6 mg PO DAILY Qty: 30 0RF hydroxyzine HCl 25 mg tablet 25 mg PO TID PRN (Reason: anxiety) Qty: 90 1RF Sublocade 300 mg/1.5 mL solution, extended rel syringe 300 mg subcut .q 4 weeks Qty: 1.5 1RF buprenorphine HCl 8 mg tablet, sublingual 8 mg sublingual TID Qty: 90 0RF polyethylene glycol 3350 17 gram/dose powder 17 g PO DAILY PRN (Reason: constipation) Qty: 119 0RF Colace Clear 50 mg capsule 50 mg PO DAILY PRN (Reason: constipation) Qty: 30 1RF trazodone 50 mg tablet 75 mg PO BEDTIME PRN (Reason: sleep) Qty: 45 2RF
[2023-03-28 01:05] LABS: COVID-19 Test Negative (Negative); IDNOW Serial# 55D5AD1C; IDNOW Serial# 9DB6401D; Influenza A Negative (Negative); Influenza B2 Negative (Negative)
[2023-03-28 01:10] LABS: Troponin-I High Sensitivity < 2.7 ng/L (<3.5-35.0)
[2023-03-28 01:29] VITALS: BP 117/43; PULSE 63; RESP 13; O2SAT 97
--- NOTE | 2023-03-28 01:31 | PC.NURSE ---
pt cooperative, noted to be mildly anxious until this rn made opt aware the HR was 63 on heart monitor. pt reports feeling relieved to hear that . vss pt ambulatory at discharge pt provided with discharge packet, pt verbalized understanding of discharge plan
== END 2023-03-28 01:34 | disposition home or self-care (01) ==
PROVIDERS: Emergency Provider Internal Medicine
DX: R00.2 Palpitations (principal); F41.1 Generalized anxiety disorder; R07.9 Chest pain, unspecified; Z11.52 Encounter for screening for COVID-19
CPT/HCPCS: 80053; 84484; 85025; 87502; 87635; 93005; 99284; 99285

== ENCOUNTER 2023-03-31 01:46 | Emergency (ER) | payer MEDICAID, SELFPAY ==
--- NOTE | ~2023-03-31 | XR_ITS ---
EXAMINATION: XR CHEST CLINICAL INFORMATION: Pain. COMPARISON: None available. TECHNIQUE: Frontal view of the chest was obtained. FINDINGS: No significant abnormality is noted involving the heart, lungs, mediastinum, bony thorax or soft tissues. XR/XR chest 1V IMPRESSION: Unremarkable examination.
--- NOTE | 2023-03-31 01:55 | ECG_ITS ---
Test Reason : CHEST PAIN Blood Pressure : / mmHG Vent. Rate : 071 BPM Atrial Rate : 071 BPM P-R Int : 156 ms QRS Dur : 092 ms QT Int : 360 ms P-R-T Axes : 010 020 014 degrees QTc Int : 391 ms Normal sinus rhythm Normal ECG When compared with ECG of 28-MAR-2023 00:25, No significant changes seen Referred By: Generic ED Physician Electronically Signed By:CATE BOND MD
[2023-03-31 01:59] VITALS: BP 134/84; BP 146/76; PULSE 66; PULSE 90; RESP 14; TEMP 37.1; O2SAT 99; BMI 33.0
[2023-03-31 02:03] VITALS: PULSE 73
--- NOTE | 2023-03-31 02:03 | ED.CHESTPAIN ---
HPI - Chest Pain General Chief Complaint: Chest Pain Stated Complaint: cp Time Seen by Provider: 03/31/23 01:58 Source: patient Mode of arrival: EMS Limitations: no limitations History of Present Illness HPI narrative: 32 yo male with PMH of prior substance abuse in recovery at 18 months, anxiety, depression, asthma who still smokes just seen 3 days ago for chest pain while playing video games same thing tonight playing video games and felt his chest was tight and he couldnt breathe. No travel/procedures. no risk factors for ACS or known heart disease, no cocaine abuse. He has not had URI MD complaint: chest pain Onset (ago): hour(s) (prior to arrival ) Timing of current episode: still present Prior episodes: Yes Onset: during rest (playing video games) Pain location: substernal Pain radiation: none Severity: moderate Quality: tightness Relieving factors: nothing Exacerbating factors: other (video game) Context: other (just seen for same) Associated symptoms: dyspnea Treatment prior to arrival: aspirin Related Data Previous Rx's Medication Instructions Recorded sennosides 8.6 mg capsule (senna) 8.6 mg PO DAILY #30 caps 02/13/22 docusate sodium 50 mg capsule 50 mg PO DAILY PRN constipation 09/18/22 (Colace Clear) #30 caps trazodone 50 mg tablet 75 mg (1.5 x 50 mg) PO BEDTIME PRN 09/18/22 sleep #45 tabs hydroxyzine HCl 25 mg tablet 25 mg PO TID PRN anxiety #90 tabs 11/10/22 buprenorphine 300 mg/1.5 mL 300 mg (1.5 mL) subcut .q 4 weeks 01/06/23 solution,exten.rel.subcutaneous #1.5 mL syringe (Sublocade) buprenorphine HCl 8 mg sublingual 8 mg sublingual TID #90 tabs 03/02/23 tablet polyethylene glycol 3350 17 17 g PO DAILY PRN constipation 03/02/23 gram/dose oral powder #119 grams Allergies Allergy/AdvReac Type Severity Reaction Status Date / Time pineapple [Pineapple] Allergy Unknown HIVES Verified 03/28/23 00:39 naloxone AdvReac Intermediate Vomiting Verified 03/28/23 00:39 Pineapples Allergy Unknown Unknown Uncoded 03/02/23 15:26 Review of Systems Review of Systems: Constitutional : No Weight loss, No Fever, No Chills ENT/Mouth : No sore throat, No Rhinorrhea Eyes: No Eye Pain, No Swelling Cardiovascular : pos Chest Pain, pos SOB, no Dyspnea on Exertion, No Orthopnea, No Edema, No Palpitations Respiratory : No Cough, No Sputum Gastrointestinal : no Nausea, No Vomiting, No Diarrhea, No abdominal Pain, No Hematochezia, No Melena Genitourinary : No Dysuria, No Urinary Frequency Musculoskeletal : No joint pain, No Myalgias, No Joint Swelling Skin : No Skin Lesions, No rash Neuro : No Weakness, No Numbness, No Dizziness, No Headache Psych : No Anxiety/Panic, No Depression Heme/Lymph: No Bruising, No Lymphadenopathy Endocrine : No Polyuria, No Polydipsia All other systems reviewed and are negative [facility] Past Medical History Attestation statement: The following information was validated with the patient. Source: old records reviewed Medical History KEO (generalized anxiety disorder) Depression Opioid use disorder Social History Social History (Updated 03/31/23 @ 02:14 by Bruna Hernandez DO) Patient Tobacco Use Status: Current everyday Tobacco user Smoked in Last 30 Days: Yes Use of substances other than those prescribed or required for medical reasons: No Substance Use Type: Marijuana Advance Directives: No Advance Directives Information Provided: Yes Physical Exam Vital Signs: Vital Signs: Last Vital Signs Temp 98.7 F 03/31/23 01:59 Pulse 66 03/31/23 01:59 Resp 14 03/31/23 01:59 BP 146/76 H 03/31/23 01:59 BMI result Body Mass Index 33.0 Appearance: Alert. Oriented X3. No acute distress. Eyes: Pupils equal, round and reactive to light. ENT: Pharynx normal. Neck: Normal inspection. Neck supple. CVS: Normal heart rate and rhythm. Pulses normal. Respiratory: No respiratory distress. Breath sounds slightly diminished Abdomen: Soft and nontender. Skin: Skin warm and dry. Normal skin color. Normal skin turgor. Extremities: No lower extremity edema. No calf ttp Neuro: Oriented X 3. No motor deficit. No sensory deficit. Medications Administered Discontinued Medications Generic Name Dose Route Start Last Admin Trade Name Freq PRN Reason Stop Dose Admin Albuterol Sulfate 2 puff 03/31/23 02:10 03/31/23 03:14 Albuterol Sulfate 90 Mcg 8 Gm Inhaler INHALE 03/31/23 02:11 2 puff ONCE ONE Administration Medical Decision Making Medical Decision Making [facility] Narrative: 32 yo male with PMH of prior substance abuse in recovery at 18 months, anxiety, depression, asthma here with c/o chest tightness and feeling dyspnea - he is slightly diminished just seen for same with negative EKG and trop, at this time PERC negative, distal pulses intact doubt dissection. I suspect this could be more reactive airway disease will obtain EKG, CXR and give INH. Doubt ACS Differential Diagnosis Differential Diagnoses: The differential diagnosis associated with the presentation includes atypical chest pain, asthma Admission/Observation Consideration of admission/observation: Escalation of care including admission/observation considered not toxic, stable for DC Lab Data [facility] Lab Attestation statement: I reviewed the patient's lab results. Independent Interpretation I performed an independent interpretation of an: EKG and Plain X-Ray (normal ) Interpretation: Rate: 71 Rhythm: NSR [place]: normal Normal P waves. Normal [place]. Normal QRS complex. ST T wave : normal no EDWIN, inverted t wave III qTC: normal prior studies: no acute ischemia The study has been interpreted contemporaneously by me. . Radiology Impression Discussion of test interpretation with radiology: I have reviewed the radiologist's reading. Prescription Management I considered prescription management with: Other Discharge Plan Discharge Clinical Impression: Atypical chest pain Asthma Qualifiers: Asthma severity: mild Asthma persistence: intermittent Asthma complication type: unspecified Qualified Code(s): J45.20 - Mild intermittent asthma, uncomplicated Patient Disposition: Home, Self-Care Instructions: Chest Pain (ED), Asthma (ED) Additional Instructions: return for worsening pain, fainting, increased trouble breathing or any other concerns. you can use the INHALER 2 to 4 puffs every 4 hours as needed for shortness of breath or wheezing. Prescriptions: No Action senna 8.6 mg capsule 8.6 mg PO DAILY Qty: 30 0RF hydroxyzine HCl 25 mg tablet 25 mg PO TID PRN (Reason: anxiety) Qty: 90 1RF Sublocade 300 mg/1.5 mL solution, extended rel syringe 300 mg subcut .q 4 weeks Qty: 1.5 1RF buprenorphine HCl 8 mg tablet, sublingual 8 mg sublingual TID Qty: 90 0RF polyethylene glycol 3350 17 gram/dose powder 17 g PO DAILY PRN (Reason: constipation) Qty: 119 0RF Colace Clear 50 mg capsule 50 mg PO DAILY PRN (Reason: constipation) Qty: 30 1RF trazodone 50 mg tablet 75 mg PO BEDTIME PRN (Reason: sleep) Qty: 45 2RF
[2023-03-31] MEDS: Albuterol Sulfate 90 MCG 8 GM INHALER 2 PUFF INHALE (03:14)
[2023-03-31 03:53] VITALS: BP 112/46; PULSE 61; RESP 12; TEMP 36.8
== END 2023-03-31 04:00 | disposition home or self-care (01) ==
PROVIDERS: Emergency Provider Emergency Medicine
DX: R07.89 Other chest pain (principal); J45.20 Mild intermittent asthma, uncomplicated; R06.02 Shortness of breath; J45.909 Unspecified asthma, uncomplicated; Z71.6 Tobacco abuse counseling; F17.210 Nicotine dependence, cigarettes, uncomplicated; Z79.899 Other long term (current) drug therapy
CPT/HCPCS: 71045; 93005; 99283; 99285

== ENCOUNTER 2023-04-02 10:45 | Outpatient (AMB) | payer MEDICAID, SELFPAY ==
--- NOTE | 2023-04-02 11:36 | A.OFFVIS_ITS ---
Intake Vital Signs 04/02/23 11:37 BP 114/78 Blood Pressure Location Lt brachial Position Sitting Pulse 62 Pulse Source Pulse Oximeter Pulse Oximetry (%) 96 Oxygen Delivery Method Room Air Intake Visit Reasons: MAT Visit Allergies pineapple [Pineapple] Allergy (Unknown, Verified 03/28/23 00:39) HIVES naloxone Adverse Reaction (Intermediate, Verified 03/28/23 00:39) Vomiting Pineapples Allergy (Unknown, Uncoded 03/02/23 15:26) Unknown HPI MAT Visit HPI Details Pt presents for OUD treatment and follow up. States he has been to the ED twice this week for chest pain that he attributes to anxiety. Denies any new stressors, states he has not been taking his hydroxyzine. Has since restarted taking his hydroxyzine since his last ED visit and reports he feels calm Reports he drinks about 12 sodas a day, t/w educated pt that excessive caffeine can cause feelings of anxiety and encouraged him to try caffeine free for a week to see how he feels. Excited because he got a new truck. Has been working 70-80 hrs a week. Says he needs to keep busy. Reports he has been having some issues with sleep- wakes around 3am and unable to fall back asleep. Denies concerns with recovery Reports some constipation- states he is able to have bowel movements but they are painful. [facility] Medical History KEO (generalized anxiety disorder) Depression Opioid use disorder Social History (Updated 03/31/23 @ 02:14 by Bruna Hernandez DO) Patient Tobacco Use Status: Current everyday Tobacco user Substance Use Type: Marijuana Review of Systems Const Reports as per HPI GI Reports constipation Psych Reports abnormal sleep pattern and Reports anxiety Physical Exam Const General: cooperative, healthy appearing and no acute distress Nutritional Appearance: average body habitus Orientation/consciousness: patient oriented x3 Resp Effort & Inspection: normal respiratory effort Skin General skin exam: no rashes or lesions noted Neuro General: patient oriented x3 Psych Appearance: grossly normal and well kempt Mental Status: mental status grossly normal Speech and movement: Normal speech and movement present Affect: Animated affect present Attitude: cooperative Thought process: Normal thought process present Assessment & Plan Assessment & Plan (1) Opioid use disorder, severe, in early remission: Code(s): F11.21 - Opioid dependence, in remission Plan: Continue suboxone at current dose- pt tolerating med Encouraged to start taking stool softener in the morning and evening until bowel movements become less painful. Encouraged to drink more water- first goal 1 bottle of water daily. Educated on sleep hygiene. Follow up in 4 weeks. (2) Cocaine use disorder: Comment: continues abstinent, doing well. Code(s): F14.10 - Cocaine abuse, uncomplicated Medications: Refilled buprenorphine HCl 8 mg sublingual TID 90 tabs 0RF Coding Level of Care Code Est Pt Level 3 (65668) Diagnoses Opioid use disorder, severe, in early remission F11.21 Cocaine use disorder F14.10
[2023-04-02 11:37] VITALS: BP 114/78; PULSE 62; O2SAT 96
== END 2023-04-02 11:34 | disposition home or self-care (01) ==
PROVIDERS: Visit Provider Nurse Practitioner Family
DX: F11.21 Opioid dependence, in remission (principal); F14.10 Cocaine abuse, uncomplicated
CPT/HCPCS: 99213

== ENCOUNTER → 2023-04-02 10:45 | Outpatient (BNVA) | payer MEDICAID, SELFPAY | PROVIDERS: Visit Provider Nurse Practitioner Family | DX: F11.21 Opioid dependence, in remission (principal); F14.10 Cocaine abuse, uncomplicated | CPT/HCPCS: 99212 ==

== ENCOUNTER 2023-04-04 01:26 | Emergency (ER) | payer MEDICAID, SELFPAY ==
--- NOTE | ~2023-04-04 | XR_ITS ---
EXAMINATION: XR CHEST CLINICAL INFORMATION: Chest pain. COMPARISON: 03/31/2023. TECHNIQUE: Frontal view of the chest was obtained. FINDINGS: The cardiomediastinal silhouette is stable. There is no focal lung consolidation or pleural effusion. The bony structures and soft tissues are unremarkable. XR/XR chest 1V IMPRESSION: No active cardiopulmonary disease.
[2023-04-04 01:41] VITALS: BP 140/82; BP 147/83; PULSE 100; PULSE 106; RESP 12; TEMP 36.6; O2SAT 99; BMI 31.6
--- NOTE | 2023-04-04 01:44 | ECG_ITS ---
Test Reason : CHEST OAIN Blood Pressure : / mmHG Vent. Rate : 080 BPM Atrial Rate : 080 BPM P-R Int : 168 ms QRS Dur : 090 ms QT Int : 360 ms P-R-T Axes : 029 020 018 degrees QTc Int : 415 ms Normal sinus rhythm Normal ECG When compared with ECG of 31-MAR-2023 01:58, No significant change was found Referred By: Lenny Yi Electronically Signed By:CATE BODN MD
--- NOTE | 2023-04-04 01:49 | ED.CHESTPAIN ---
HPI - Chest Pain General Chief Complaint: Chest Pain Stated Complaint: Chest Pain Time Seen by Provider: 04/04/23 01:44 Source: patient and EMS Mode of arrival: EMS Limitations: no limitations History of Present Illness HPI narrative: 32-year-old male history of anxiety came in by ambulance for evaluation of palpitation. patient admitted to only smoking marijuana but no use of any other street drugs patient has been clean for a while now. Patient in the emergency department feels no palpitation with heart rate in 90s, no chest pain, no shortness of breath. Patient was seen twice last week for same symptoms. Related Data Previous Rx's Medication Instructions Recorded sennosides 8.6 mg capsule (senna) 8.6 mg PO DAILY #30 caps 02/13/22 docusate sodium 50 mg capsule 50 mg PO DAILY PRN constipation 09/18/22 (Colace Clear) #30 caps trazodone 50 mg tablet 75 mg (1.5 x 50 mg) PO BEDTIME PRN 09/18/22 sleep #45 tabs hydroxyzine HCl 25 mg tablet 25 mg PO TID PRN anxiety #90 tabs 11/10/22 buprenorphine 300 mg/1.5 mL 300 mg (1.5 mL) subcut .q 4 weeks 01/06/23 solution,exten.rel.subcutaneous #1.5 mL syringe (Sublocade) polyethylene glycol 3350 17 17 g PO DAILY PRN constipation 03/02/23 gram/dose oral powder #119 grams buprenorphine HCl 8 mg sublingual 8 mg sublingual TID #90 tabs 04/02/23 tablet Allergies Allergy/AdvReac Type Severity Reaction Status Date / Time pineapple [Pineapple] Allergy Unknown HIVES Verified 03/28/23 00:39 naloxone AdvReac Intermediate Vomiting Verified 03/28/23 00:39 Pineapples Allergy Unknown Unknown Uncoded 03/02/23 15:26 Review of Systems Review of Systems: All other systems are reviewed and are negative Constitutional: Reports as per HPI and Reports no additional constitutional complaints Eyes: Reports as per HPI and Reports no additional eye complaints Reports system reviewed and no additional complaints, except as documented Cardiovascular: Reports as per HPI and Reports no additional cardiovascular complaints Respiratory: Reports as per HPI and Reports no additional respiratory complaints Gastrointestinal: Reports as per HPI and Reports no additional gastrointestinal complaints Genitourinary: Reports no additional female genitourinary complaints Musculoskeletal: Reports no additional musculoskeletal complaints Skin/Breast: Reports system reviewed and no additional complaints, except as docu Psychiatric: Reports no additional psychiatric complaints Endocrine: Reports no additional endocrine complaints Hematologic/Lymphatic: Reports no additional hematologic/lymphatic complaints Allergic/Immunologic: Reports no additional allergic/immunologic complaints Reports system reviewed and no additional complaints, except as documented and Reports Abnormal speech present [facility] Past Medical History Medical History KEO (generalized anxiety disorder) Depression Opioid use disorder Social History Social History Patient Tobacco Use Status: Current everyday Tobacco user Substance Use Type: Marijuana Physical Exam Vital Signs: Vital Signs: Last Vital Signs Temp 98 F 04/04/23 01:41 Pulse 100 04/04/23 01:41 Resp 12 04/04/23 01:41 BP 147/83 H 04/04/23 01:41 Pulse Ox 99 04/04/23 01:41 O2 Del Method Room Air 04/04/23 01:41 BMI result Body Mass Index 31.6 Vital signs have been reviewed and appear to be correct. Blood pressure elevated. Heart rate normal. Respiratory rate normal. Temperature normal. Oxygen saturation normal. Appearance: Alert. Oriented X3. No acute distress. Head: Normal external exam. Normocephalic. Atraumatic. No Chang signs noted. No raccoon eyes noted Eyes: PERRLA. EOMI. Conjunctiva and sclera normal. Eyelids normal. ENT: TM's Normal. Pharynx normal. Uvula midline. Moist mucous membranes. No trismus noted. No drooling noted. No muffled voice noted. Neck: Normal inspection. Neck supple. FROM. No adenopathy. Thyroid Normal. No meningeal signs. No neck mass noted. CVS: Normal heart rate and rhythm. Heart sound normal. No murmurs noted. Pulses normal throughout. Respiratory: No respiratory distress. Painless inspiration. Breath sounds normal. No wheezes/rales/rhonchi noted. Chest nontender. No accessory muscle usage noted or decreased air movement noted. Abdomen: Soft and nontender. Bowel sounds normal in all 4 quadrants. No distention noted. No organomegaly noted. No visible injury noted. Back: No CVA tenderness. Full range of motion noted. Skin: Skin warm and dry. Normal skin color. Normal skin turgor. No rashes/lesions/lacerations noted. Extremities: No lower extremity edema. Extremities exhibit normal range of motion. Extremities nontender. Neuro: Oriented X 3. Cranial nerve exam: II-XII are grossly intact No motor deficit. No sensory deficit. Reflexes normal. Course Reevaluation(s) Reevaluation #1: 32-year-old male former drug abuser came in for palpitation with no chest pain, while patient in the emergency department had a normal heart rate with no arrhythmia, unremarkable labs, today is 3rd patient's visit to the ED in 1 week for similar symptoms, no SOB, no wheezing. Will discharge the patient on follow-up with outpatient phlebotomist as an outpatient for possible Holter monitor as an outpatient. Time: 02:52 Medical Decision Making Differential Diagnosis Differential Diagnoses: The differential diagnosis associated with the presentation includes ( Substance abuse, dysrhythmia, anxiety, drug abuse, electrolyte abnormality, severe anemia , pancreatitis.) Admission/Observation Consideration of admission/observation: Escalation of care including admission/observation considered Lab Data MDM Lab Attestation statement: I reviewed the patient's lab results. Independent Interpretation I performed an independent interpretation of an: EKG ( normal sinus rhythm at 71 beats per minutes, normal intervals, no ST-T changes, no significant change from previous EKG.) and Plain X-Ray ( Unremarkable examination.) Radiology Impression Discussion of test interpretation with radiology: I have reviewed the radiologist's reading. Discharge Plan Discharge Clinical Impression: Palpitation Patient Disposition: Home, Self-Care Instructions: Heart Palpitations (ED) Prescriptions: No Action senna 8.6 mg capsule 8.6 mg PO DAILY Qty: 30 0RF hydroxyzine HCl 25 mg tablet 25 mg PO TID PRN (Reason: anxiety) Qty: 90 1RF Sublocade 300 mg/1.5 mL solution, extended rel syringe 300 mg subcut .q 4 weeks Qty: 1.5 1RF polyethylene glycol 3350 17 gram/dose powder 17 g PO DAILY PRN (Reason: constipation) Qty: 119 0RF Colace Clear 50 mg capsule 50 mg PO DAILY PRN (Reason: constipation) Qty: 30 1RF trazodone 50 mg tablet 75 mg PO BEDTIME PRN (Reason: sleep) Qty: 45 2RF buprenorphine HCl 8 mg tablet, sublingual 8 mg sublingual TID Qty: 90 0RF Referrals: Keyon Cantrell MD [Physician] -
[2023-04-04 02:47] LABS: MANUAL DIFF FLAG NO
[2023-04-04 02:48] LABS: Basophils Absolute Auto 0.1 X10*3/uL (0.0-0.2); Basophils Percent Auto 0.5 % (0-2); Eosinophils Absolute Auto 0.3 X10*3/uL (0.0-0.4); Eosinophils Percent Auto 2.8 % (0-4); Hematocrit 43.4 % (42.0-52.0); Hemoglobin 14.8 g/dl (14.0-18.0); Imm Gran Abs Auto 0.01 X10*3/uL (0.00-0.03); Imm Gran Pct Auto 0.1 % (0.0-0.4); Lymphocytes Absolute Auto 2.1 X10*3/uL (1.2-4.9); Lymphocytes Percent Auto 20.3 % (20-40); Mean Corpuscular HGB Conc 34.1 g/dl (31.0-36.0); Mean Corpuscular Hemoglobin 28.3 pg (27.0-33.0); Mean Platelet Volume 9.9 fL (9.4-12.4); Monocytes Absolute Auto 0.5 X10*3/uL (0.1-1.2); Monocytes Percent Auto 4.7 % (2-11); Neutrophils Absolute Auto 7.5 x10*3/uL (2.0-8.3); Neutrophils Percent Auto 71.6 % (45-73); Platelet Count 258 X10*3/uL (160-400); Red Blood Count 5.23 X10*6/uL (4.60-5.80); Red Cell Distribution Width 11.9 % (11.0-16.0); White Blood Count 10.5 X10*3/uL (4.8-10.8)
[2023-04-04 03:04] LABS: Alanine Aminotransferase 18 U/L (0-40); Albumin Level 4.6 g/dL (3.5-5.0); Alkaline Phosphatase 85 U/L (39-117); Anion Gap 12 (12-20); Aspartate Amino Transferase 16 U/L (5-37); Bilirubin Direct 0.2 mg/dL (0.0-0.5); Bilirubin Total 0.4 mg/dL (0.0-1.0); Blood Urea Nitrogen 14 mg/dL (9-16); Calcium 10.1 mg/dL (8.4-10.2); Carbon Dioxide 29 mmol/L (22-29); Chloride 102 mmol/L (96-108); Creatinine Clr Calc Pharmacy 155.9; Estimated Glomerular Filt Rate > 60; Glucose Random 102 mg/dL (60-115); Lipase 27 U/L (8-78); Potassium 4.2 mmol/L (3.3-5.1); Sodium 139 mmol/L (135-145); Total Protein 7.7 g/dL (6.5-8.0)
[2023-04-04 03:15] LABS: Troponin-I High Sensitivity < 2.7 ng/L (<3.5-35.0)
[2023-04-04 03:24] LABS: Influenza A PCR NEGATIVE (Negative); Influenza B PCR NEGATIVE (Negative); Resp Syncy Virus RNA Qual PCR NEGATIVE (Negative); SARS COV2 PCR INHOUSE NEGATIVE (Negative)
[2023-04-04 03:32] VITALS: BP 126/56; PULSE 72; RESP 15; O2SAT 96
== END 2023-04-04 04:13 | disposition home or self-care (01) ==
PROVIDERS: Emergency Provider Emergency Medicine
DX: R00.2 Palpitations (principal); Z20.822 Contact with and (suspected) exposure to COVID-19; Z20.828 Contact with and (suspected) exposure to other viral communicable diseases; F12.90 Cannabis use, unspecified, uncomplicated; F11.21 Opioid dependence, in remission; F17.200 Nicotine dependence, unspecified, uncomplicated; Z79.899 Other long term (current) drug therapy
CPT/HCPCS: 0241U; 36415; 71045; 80048; 80076; 83690; 84484; 85025; 93005; 99283; 99285

== ENCOUNTER 2023-04-06 21:20 | Emergency (ER) | payer MEDICAID, SELFPAY ==
--- NOTE | 2023-04-06 | ECG_ITS ---
Test Reason : chest pain Blood Pressure : / mmHG Vent. Rate : 074 BPM Atrial Rate : 074 BPM P-R Int : 152 ms QRS Dur : 094 ms QT Int : 362 ms P-R-T Axes : 014 015 008 degrees QTc Int : 401 ms Normal sinus rhythm with sinus arrhythmia Normal ECG When compared with ECG of 04-APR-2023 02:49, No significant change was found Referred By: Generic ED Physician Electronically Signed By:CATE BOND MD
[2023-04-06 21:22] VITALS: BP 149/80; PULSE 79; RESP 16; TEMP 37.1; O2SAT 98; BMI 31.6
[2023-04-06 21:43] LABS: MANUAL DIFF FLAG NO
[2023-04-06 21:44] LABS: Basophils Absolute Auto 0.1 X10*3/uL (0.0-0.2); Basophils Percent Auto 0.5 % (0-2); Eosinophils Absolute Auto 0.2 X10*3/uL (0.0-0.4); Hematocrit 40.6 % (42.0-52.0); Hemoglobin 14.1 g/dl (14.0-18.0); Imm Gran Abs Auto 0.01 X10*3/uL (0.00-0.03); Imm Gran Pct Auto 0.1 % (0.0-0.4); Lymphocytes Absolute Auto 2.1 X10*3/uL (1.2-4.9); Lymphocytes Percent Auto 20.5 % (20-40); Mean Corpuscular HGB Conc 34.7 g/dl (31.0-36.0); Mean Corpuscular Hemoglobin 28.8 pg (27.0-33.0); Mean Corpuscular Volume 82.9 fL (80.0-98.0); Mean Platelet Volume 10.3 fL (9.4-12.4); Monocytes Absolute Auto 0.5 X10*3/uL (0.1-1.2); Monocytes Percent Auto 5.1 % (2-11); Neutrophils Absolute Auto 7.4 x10*3/uL (2.0-8.3); Neutrophils Percent Auto 71.8 % (45-73); Platelet Count 238 X10*3/uL (160-400); Red Cell Distribution Width 11.9 % (11.0-16.0); White Blood Count 10.3 X10*3/uL (4.8-10.8)
[2023-04-06 22:04] LABS: Alanine Aminotransferase 26 U/L (0-40); Albumin Level 4.7 g/dL (3.5-5.0); Alkaline Phosphatase 86 U/L (39-117); Anion Gap 13 (12-20); Aspartate Amino Transferase 16 U/L (5-37); Bilirubin Total 0.4 mg/dL (0.0-1.0); Blood Urea Nitrogen 13 mg/dL (9-16); Carbon Dioxide 28 mmol/L (22-29); Chloride 105 mmol/L (96-108); Creatinine Clr Calc Pharmacy 145.3; Estimated Glomerular Filt Rate > 60; Glucose Random 124 mg/dL (60-115); Potassium 4.1 mmol/L (3.3-5.1); Sodium 142 mmol/L (135-145); Total Protein 7.7 g/dL (6.5-8.0)
[2023-04-06 22:11] LABS: Troponin-I High Sensitivity < 2.7 ng/L (<3.5-35.0)
[2023-04-06 23:18] VITALS: BP 109/42; PULSE 60; RESP 12; O2SAT 98
--- NOTE | 2023-04-07 00:39 | ED_ITS ---
HPI - Chest Pain General Chief Complaint: Chest Pain Stated Complaint: Chest pain Time Seen by Provider: 04/06/23 22:22 History of Present Illness HPI narrative: patient is a 32-year-old male with a previous history of cocaine use. History of opiate use in remission. Presents today with having chest pain. The chest pain is on the left side. Patient claimed he had all week. There is no specific trigger. It is fairly constant. Patient very sleepy in the emergency department. Denies any diaphoresis. Denies any fever chills. Denies any coughing congestion upper respiratory symptoms. There was just seen here 2 days ago had an x-ray done at that time was grossly negative. Patient denies Any history of hypertension, hypercholesterolemia. Positive smoking. No history of OR. No family history of OR. no history of leg swelling no history of blood clot no family history of blood clot Related Data Previous Rx's Medication Instructions Recorded sennosides 8.6 mg capsule (senna) 8.6 mg PO DAILY #30 caps 02/13/22 docusate sodium 50 mg capsule 50 mg PO DAILY PRN constipation 09/18/22 (Colace Clear) #30 caps trazodone 50 mg tablet 75 mg (1.5 x 50 mg) PO BEDTIME PRN 09/18/22 sleep #45 tabs hydroxyzine HCl 25 mg tablet 25 mg PO TID PRN anxiety #90 tabs 11/10/22 buprenorphine 300 mg/1.5 mL 300 mg (1.5 mL) subcut .q 4 weeks 01/06/23 solution,exten.rel.subcutaneous #1.5 mL syringe (Sublocade) polyethylene glycol 3350 17 17 g PO DAILY PRN constipation 03/02/23 gram/dose oral powder #119 grams buprenorphine HCl 8 mg sublingual 8 mg sublingual TID #90 tabs 04/02/23 tablet Allergies Allergy/AdvReac Type Severity Reaction Status Date / Time pineapple [Pineapple] Allergy Unknown HIVES Verified 03/28/23 00:39 naloxone AdvReac Intermediate Vomiting Verified 03/28/23 00:39 Pineapples Allergy Unknown Unknown Uncoded 03/02/23 15:26 Review of Systems 2 Review of Systems: positive chest pain Yes all other systems are reviewed and are negative PMFSH Past Medical History Attestation statement: The following information was validated with the patient. Medical History KEO (generalized anxiety disorder) Depression Opioid use disorder Social History Social History Patient Tobacco Use Status: Current everyday Tobacco user Smoked in Last 30 Days: No Substance Use Type: Marijuana Advance Directives: No Advance Directives Information Provided: No Physical Exam 2 Vital Signs: Vital Signs: Last Vital Signs Temp 98.8 F 04/06/23 21:22 Pulse 60 04/06/23 23:18 Resp 12 04/06/23 23:18 BP 109/42 L 04/06/23 23:18 Pulse Ox 98 04/06/23 23:18 O2 Del Method Room Air 04/06/23 23:18 BMI result Body Mass Index 31.6 Appearance: Alert. Oriented X3. No acute distress. Eyes: Pupils equal, round and reactive to light. ENT: Pharynx normal. Neck: Normal inspection. Neck supple. No lymph nodes noted. No crepitus CVS: Normal heart rate and rhythm. Pulses normal. Normal S1 and S2 Respiratory: No respiratory distress. Breath sounds normal. No Wheezing. No rales Abdomen: Soft and nontender. No rigidity. No distention. good BS x4 Skin: Skin warm and dry. Normal skin color. Normal skin turgor. Extremities: No lower extremity edema. Neurovascular intact to all extremities. No Lacerations. No Rash Neuro: Oriented X 3. No motor deficit. No sensory deficit. Moving all extermities. No slurred speech Medical Decision Making Medical Decision Making MDM Narrative: patient's chest pain is atypical. Constant ongoing for days. His troponin is negative. My interpretation of his EKG showed a sinus rhythm heart rate is 75 OR QRS QTC within normal limits there is no acute ST segment elevation. Patient's EKG is not changed from previous. He is only 32 years old. He is a smoker. He does have a history of recreational drug use. His heart score is less than 3. Will discharge patient home. Close follow-up on an outpatient basis. Patient had multiple x-ray done within the last week they are all negative. Unlikely to have pneumonia pneumothorax given patient already had chest pain for at least a week. He has no risk for PE Differential Diagnosis Differential Diagnoses: The differential diagnosis associated with the presentation includes chest pain secondary to ACS, PE, pneumonia, pneumothorax, anxiety Admission/Observation Consideration of admission/observation: Escalation of care including admission/observation considered no need for admission is patient heart score less than 3. Lab Data MDM Lab Attestation statement: I reviewed the patient's lab results. 04/06/23 21:37 04/06/23 21:37 Labs: Lab Results 04/06/23 Range/Units 21:37 WBC 10.3 (4.8-10.8) X10*3/uL RBC 4.90 (4.60-5.80) X10*6/uL Hgb 14.1 (14.0-18.0) g/dl Hct 40.6 L (42.0-52.0) % MCV 82.9 (80.0-98.0) fL MCH 28.8 (27.0-33.0) pg MCHC 34.7 (31.0-36.0) g/dl RDW 11.9 (11.0-16.0) % Plt Count 238 (160-400) X10*3/uL MPV 10.3 (9.4-12.4) fL Immature Gran % (Auto) 0.1 (0.0-0.4) % Neut % (Auto) 71.8 (45-73) % Lymph % (Auto) 20.5 (20-40) % Long % (Auto) 5.1 (2-11) % Eos % (Auto) 2.0 (0-4) % Baso % (Auto) 0.5 (0-2) % Lymph # (Auto) 2.1 (1.2-4.9) X10*3/uL Long # (Auto) 0.5 (0.1-1.2) X10*3/uL Eos # (Auto) 0.2 (0.0-0.4) X10*3/uL Baso # (Auto) 0.1 (0.0-0.2) X10*3/uL Abs Immat Gran (auto) 0.01 (0.00-0.03) X10*3/uL Absolute Neuts (auto) 7.4 (2.0-8.3) x10*3/uL Absolute Nucleated RBC 0.000 (0.0-0.012) X10*3/uL Nucleated RBC % (auto) 0.0 (0.0-0.2) /100WBC Sodium 142 (135-145) mmol/L Potassium 4.1 (3.3-5.1) mmol/L Chloride 105 (96-108) mmol/L Carbon Dioxide 28 (22-29) mmol/L Anion Gap 13 (12-20) BUN 13 (9-16) mg/dL Creatinine 0.88 (0.5-1.4) mg/dL Estim Creat Clear Calc 145.3 Estimated GFR > 60 Random Glucose 124 H (60-115) mg/dL Calcium 10.0 (8.4-10.2) mg/dL Total Bilirubin 0.4 (0.0-1.0) mg/dL AST 16 (5-37) U/L ALT 26 (0-40) U/L Alkaline Phosphatase 86 (39-117) U/L Troponin I High Sens < 2.7 (<3.5-35.0) ng/L Total Protein 7.7 (6.5-8.0) g/dL Albumin 4.7 (3.5-5.0) g/dL Independent Interpretation I performed an independent interpretation of an: EKG ( Sinus heart rate is 70 OR QRS QTC within normal limits no acute ST segment elevation) External Record Review previous record reviewed. Previous EKG reviewed Discharge Plan Discharge Clinical Impression: Chest pain, Cocaine use disorder, Opioid use disorder, severe, in early remission Patient Disposition: Home, Self-Care Instructions: Cocaine Abuse (ED), Polysubstance Abuse (ED), Chest Pain (DC) Prescriptions: No Action senna 8.6 mg capsule 8.6 mg PO DAILY Qty: 30 0RF hydroxyzine HCl 25 mg tablet 25 mg PO TID PRN (Reason: anxiety) Qty: 90 1RF Sublocade 300 mg/1.5 mL solution, extended rel syringe 300 mg subcut .q 4 weeks Qty: 1.5 1RF polyethylene glycol 3350 17 gram/dose powder 17 g PO DAILY PRN (Reason: constipation) Qty: 119 0RF Colace Clear 50 mg capsule 50 mg PO DAILY PRN (Reason: constipation) Qty: 30 1RF trazodone 50 mg tablet 75 mg PO BEDTIME PRN (Reason: sleep) Qty: 45 2RF buprenorphine HCl 8 mg tablet, sublingual 8 mg sublingual TID Qty: 90 0RF Referrals: Tayo Salazar MD [Physician] - 04/09/23
[2023-04-07 01:33] VITALS: BP 114/57; PULSE 95; RESP 16; TEMP 36.5; O2SAT 98
--- NOTE | 2023-04-07 01:36 | PC.NURSE ---
Reviewed discharge instructions with pt, pt verbalized understanding, no sob or chest pain.
== END 2023-04-07 01:42 | disposition home or self-care (01) ==
PROVIDERS: Emergency Provider Emergency Medicine Emergency Medical Services
DX: R07.9 Chest pain, unspecified (principal); F11.21 Opioid dependence, in remission; F17.200 Nicotine dependence, unspecified, uncomplicated; F12.90 Cannabis use, unspecified, uncomplicated; Z79.899 Other long term (current) drug therapy
CPT/HCPCS: 36415; 80053; 84484; 85025; 93005; 99283; 99285

== ENCOUNTER 2023-04-09 00:31 | Emergency (ER) | payer MEDICAID, SELFPAY ==
--- NOTE | ~2023-04-09 | XR_ITS ---
EXAMINATION: XR CHEST CLINICAL INFORMATION: Chest pain. COMPARISON: 04/04/2023. TECHNIQUE: Frontal view of the chest was obtained. FINDINGS: No significant abnormality is noted involving the heart, lungs, mediastinum, bony thorax or soft tissues. XR/XR chest 1V IMPRESSION: Unremarkable examination.
[2023-04-09 00:32] VITALS: BP 148/78; PULSE 79; RESP 18; TEMP 37; O2SAT 96; BMI 30.7
--- NOTE | 2023-04-09 03:01 | PC.NURSE ---
pt changed over into hospital attire, pt placed on bed side tele monitor.
[2023-04-09 03:20] VITALS: BP 125/64; PULSE 62; RESP 14; TEMP 36.3; O2SAT 95
--- NOTE | 2023-04-09 06:25 | PC.NURSE ---
Pt left without notifying this Rn. Charge nurse Natalie barreto.
== END 2023-04-09 06:24 | disposition left against medical advice (07) ==
PROVIDERS: Emergency Provider Emergency Medicine
DX: R06.02 Shortness of breath (principal)
CPT/HCPCS: 71045; 99283; 99284

== ENCOUNTER 2023-04-12 03:20 | Emergency (ER) | payer MEDICAID, SELFPAY ==
--- NOTE | 2023-04-12 | ECG_ITS ---
Test Reason : CHEST PAIN Blood Pressure : / mmHG Vent. Rate : 087 BPM Atrial Rate : 087 BPM P-R Int : 148 ms QRS Dur : 088 ms QT Int : 340 ms P-R-T Axes : 023 014 009 degrees QTc Int : 409 ms Normal sinus rhythm Normal ECG When compared with ECG of 06-APR-2023 21:27, No significant change was found Referred By: Generic ED Physician Electronically Signed By:CATE BOND MD
[2023-04-12 03:25] VITALS: BP 140/65; PULSE 84; RESP 18; TEMP 36.8; O2SAT 97; BMI 30.6
--- NOTE | 2023-04-12 03:49 | ED.ANXIETY ---
HPI - Anxiety General Chief Complaint: Anxiety Stated Complaint: Chest Pain from anxiety? Time Seen by Provider: 04/12/23 03:35 Source: patient Mode of arrival: ambulatory Limitations: no limitations History of Present Illness HPI narrative: patient comes to the emergency room complaining of anxiety and chest pressure. Patient states that he was sleeping, woke up, started feeling anxious and having chest pressure. Patient states that he has had multiple of these episodes throughout the last 2 years. Patient states he would like to start therapy either with a psychiatrist or psychologist. He has never had therapy before. Patient only takes p.r.n. hydroxyzine Related Data Previous Rx's Medication Instructions Recorded sennosides 8.6 mg capsule (senna) 8.6 mg PO DAILY #30 caps 02/13/22 docusate sodium 50 mg capsule 50 mg PO DAILY PRN constipation 09/18/22 (Colace Clear) #30 caps trazodone 50 mg tablet 75 mg (1.5 x 50 mg) PO BEDTIME PRN 09/18/22 sleep #45 tabs hydroxyzine HCl 25 mg tablet 25 mg PO TID PRN anxiety #90 tabs 11/10/22 buprenorphine 300 mg/1.5 mL 300 mg (1.5 mL) subcut .q 4 weeks 01/06/23 solution,exten.rel.subcutaneous #1.5 mL syringe (Sublocade) polyethylene glycol 3350 17 17 g PO DAILY PRN constipation 03/02/23 gram/dose oral powder #119 grams buprenorphine HCl 8 mg sublingual 8 mg sublingual TID #90 tabs 04/02/23 tablet Allergies Allergy/AdvReac Type Severity Reaction Status Date / Time pineapple [Pineapple] Allergy Unknown HIVES Verified 04/12/23 03:31 naloxone AdvReac Intermediate Vomiting Verified 04/12/23 03:31 Pineapples Allergy Unknown Unknown Uncoded 03/02/23 15:26 Review of Systems Review of Systems: Constitutional : No Weight loss, No Fever, No Chills, No Night Sweats, No Fatigue, No Malaise ENT/Mouth : No Hearing loss, No Ear Pain, No Nasal Congestion, No Sinus Pain, No Hoarseness, No sore throat, No Rhinorrhea, No Swallowing Difficulty Eyes: No Eye Pain, No Swelling, No Redness, No Foreign Body, No Discharge, No Vision Changes Cardiovascular : No Chest Pain, No SOB, No Dyspnea on Exertion, No Orthopnea, No Edema, No Palpitations Respiratory : No Cough, No Sputum, No Wheezing, No Smoke Exposure, No Dyspnea Gastrointestinal : No Nausea, No Vomiting, No Diarrhea, No Constipation, No abdominal Pain, No Hematochezia, No Melena Genitourinary : no irregular bleeding, No Dysuria, No Urinary Frequency, No Hematuria, No Urinary Incontinence, No Urgency, No Flank Pain, No Urinary Flow Changes, No Hesitancy Musculoskeletal : No joint pain, No Myalgias, No Joint Swelling Skin : No Skin Lesions, No rash Neuro : No Weakness, No Numbness, No Paresthesias, No Loss of Consciousness, No Dizziness, No Headache Psych : complaining of anxiety Heme/Lymph: No Bruising, No Bleeding,No Lymphadenopathy Endocrine : No Polyuria, No Polydipsia, No Temperature Intolerance PMFSH Past Medical History Medical History KEO (generalized anxiety disorder) Depression Opioid use disorder Social History Social History Patient Tobacco Use Status: Current everyday Tobacco user Substance Use Type: Marijuana Advance Directives: No Advance Directives Information Provided: No Physical Exam Vital Signs: Vital Signs: Last Vital Signs Temp 98.3 F 04/12/23 03:25 Pulse 84 04/12/23 03:25 Resp 18 04/12/23 03:25 BP 140/65 H 04/12/23 03:25 Pulse Ox 97 04/12/23 03:25 O2 Del Method Room Air 04/12/23 03:25 BMI result Body Mass Index 30.6 Const: Other: Appearance: Alert. Oriented X3. No acute distress. Eyes: Pupils equal, round and reactive to light. ENT: Pharynx normal. Neck: Normal inspection. Neck supple. No lymph nodes noted. No crepitus CVS: Normal heart rate and rhythm. Pulses normal. Normal S1 and S2 Respiratory: No respiratory distress. Breath sounds normal. No Wheezing. No rales Abdomen: Soft and nontender. No rigidity. No distention. Skin: Skin warm and dry. Normal skin color. Normal skin turgor. Extremities: No lower extremity edema. No Lacerations. No Rash Neuro: Oriented X 3. No motor deficit. No sensory deficit. Moving all extremities. No slurred speech. CN 2 through 12 grossly intact Psych: calm, cooperative, normal affect Medical Decision Making Medical Decision Making MDM Narrative: - interpretation of EKG: Normal sinus rhythm, heart rate 87, no ST segment depression or elevation, nonspecific T-wave inversion in lead III, QTC 409 - patient states that he feels much better, no chest pain, no chest pressure. - care team is currently not present, it will be at least 3-4 hours until they get here. Patient was given information to call and set up his own appointments. - when patient arrived, patient stated that he was wheezing. Here in the ED, patient has completely clear lung sounds Differential Diagnosis Differential Diagnoses: The differential diagnosis associated with the presentation includes ( Anxiety, depression, asthma) Independent Interpretation I performed an independent interpretation of an: EKG Discharge Plan Discharge Clinical Impression: Acute anxiety Patient Disposition: Home, Self-Care Instructions: Anxiety (ED) Additional Instructions: Please follow-up with your primary care physician tomorrow. If you have any worsening or new symptoms, please return to the emergency room or call 911 Prescriptions: No Action senna 8.6 mg capsule 8.6 mg PO DAILY Qty: 30 0RF hydroxyzine HCl 25 mg tablet 25 mg PO TID PRN (Reason: anxiety) Qty: 90 1RF Sublocade 300 mg/1.5 mL solution, extended rel syringe 300 mg subcut .q 4 weeks Qty: 1.5 1RF polyethylene glycol 3350 17 gram/dose powder 17 g PO DAILY PRN (Reason: constipation) Qty: 119 0RF Colace Clear 50 mg capsule 50 mg PO DAILY PRN (Reason: constipation) Qty: 30 1RF trazodone 50 mg tablet 75 mg PO BEDTIME PRN (Reason: sleep) Qty: 45 2RF buprenorphine HCl 8 mg tablet, sublingual 8 mg sublingual TID Qty: 90 0RF
--- NOTE | 2023-04-12 04:09 | PC.NURSE ---
Reviewed discharge instruction with pt, pt verbalized understanding, resource information given for follow up appointment.
--- NOTE | 2023-04-12 04:10 | PC.NURSE ---
Notified KARINA Guillen, pt was discharge.
== END 2023-04-12 04:30 | disposition home or self-care (01) ==
PROVIDERS: Emergency Provider Emergency Medicine
DX: F41.9 Anxiety disorder, unspecified (principal); F17.200 Nicotine dependence, unspecified, uncomplicated; Z79.899 Other long term (current) drug therapy; F11.21 Opioid dependence, in remission
CPT/HCPCS: 93005; 99283; 99284

== ENCOUNTER 2023-04-21 14:52 | Outpatient (REF) | payer MEDICAID, SELFPAY ==
[2023-04-21 17:30] LABS: Estimated Average Glucose 120 mg/dL; Hemoglobin A1C 152.6426 umol/L; Hemoglobin A1c % 5.8 % (<6.0)
[2023-04-21 18:10] LABS: TSH reflex Free T4 2.04 uIU/mL (0.32-4.0)
== END 2023-04-21 14:53 | disposition home or self-care (01) ==
LOC: HO.LAB 14:52
PROVIDERS: Visit Provider Nurse Practitioner Psychiatric/Mental Health
DX: F11.21 Opioid dependence, in remission (principal); Z79.899 Other long term (current) drug therapy
CPT/HCPCS: 36415; 83036; 84443; 99212

== ENCOUNTER 2023-04-21 14:52 | Outpatient (AMB) | payer MEDICAID, SELFPAY ==
[2023-04-21 15:12] VITALS: BP 122/70; PULSE 80; O2SAT 96
--- NOTE | 2023-04-21 15:12 | MHC.OFFVIS ---
Intake Vital Signs 04/21/23 15:12 BP 122/70 Blood Pressure Location Lt radial Position Sitting Pulse 80 Pulse Source Pulse Oximeter Pulse Oximetry (%) 96 Oxygen Delivery Method Room Air Intake Visit Reasons: MAT Visit Intake Note: the patient presents for a mat visit Allergies pineapple [Pineapple] Allergy (Unknown, Verified 04/21/23 15:13) HIVES naloxone Adverse Reaction (Intermediate, Verified 04/21/23 15:13) Vomiting Pineapples Allergy (Unknown, Uncoded 04/21/23 15:13) Unknown Do you need a note to return to daycare/school/sports/work: No HPI MAT Visit HPI Details Patient presents to discuss worsening anxiety and panic He reports he has been to the ED 3 times withing the last month with heart palpitations. Each visit there no findings. Patient concerned that something may be wrong with his heart He reports weight gain and difficultly sleeping as well [facility] Medical History (Updated 04/21/23 @ 15:24 by Lela Marrufo CNP) Cocaine use disorder KEO (generalized anxiety disorder) Depression Opioid use disorder Social History Patient Tobacco Use Status: Current everyday Tobacco user Substance Use Type: Marijuana Review of Systems Const Reports as per HPI Eyes Reports seeing flashes Card Reports palpitations Psych Reports anxiety and Reports panic attacks Endo Reports palpitations Physical Exam Vital Signs: Last Vital Signs Pulse 80 04/21/23 15:12 BP 122/70 04/21/23 15:12 Pulse Ox 96 04/21/23 15:12 Oxygen Delivery Method Room Air 04/21/23 15:12 Const General: cooperative and anxious Nutritional Appearance: overweight Orientation/consciousness: patient oriented x3 Neuro General: patient oriented x3 Psych Appearance: well kempt Speech and movement: Clear speech present Affect: Anxious affect present Attitude: cooperative Thought process: Circumstantial thought process present Assessment & Plan Assessment & Plan (1) Opioid use disorder, severe, in early remission: Code(s): F11.21 - Opioid dependence, in remission Plan: labwork ordered follow up as scheduled Orders: Orders TSH reflex Free T4 04/21/23 Z79.899 - Other half-way (current) drug therapy Hemoglobin A1c 04/21/23 Z79.899 - Other terminal carman (current) drug therapy Medications: New clonidine HCl 0.1 mg PO BID 10 tabs 0RF Coding Level of Care Code Est Pt Level 3 (29930) Diagnoses Opioid use disorder, severe, in early remission F11.21
== END 2023-04-21 15:40 | disposition home or self-care (01) ==
PROVIDERS: Visit Provider Nurse Practitioner Psychiatric/Mental Health
DX: F11.21 Opioid dependence, in remission (principal)
CPT/HCPCS: 99213

== ENCOUNTER 2023-04-29 22:23 | Emergency (ER) | payer SELFPAY ==
--- NOTE | 2023-04-29 | ECG_ITS ---
Test Reason : CP Blood Pressure : / mmHG Vent. Rate : 114 BPM Atrial Rate : 114 BPM P-R Int : 150 ms QRS Dur : 086 ms QT Int : 318 ms P-R-T Axes : 025 013 012 degrees QTc Int : 438 ms Sinus tachycardia Otherwise normal ECG When compared with ECG of 12-APR-2023 03:24, No significant change was found Referred By: Generic ED Physician Electronically Signed By:ESTHER TOLEDO
--- NOTE | ~2023-04-29 | XR_ITS ---
EXAMINATION: XR CHEST CLINICAL INFORMATION: Chest pain. COMPARISON: 04/09/2023. TECHNIQUE: Frontal view of the chest was obtained. FINDINGS: No significant abnormality is noted involving the heart, lungs, mediastinum, bony thorax or soft tissues. XR/XR chest 1V IMPRESSION: Unremarkable examination.
[2023-04-29 22:41] VITALS: BP 159/91; PULSE 92; RESP 18; TEMP 37.1; O2SAT 97; BMI 32.1
[2023-04-29 23:19] LABS: Basophils Absolute Auto 0.1 X10*3/uL (0.0-0.2); Basophils Percent Auto 0.5 % (0-2); Eosinophils Absolute Auto 0.5 X10*3/uL (0.0-0.4); Eosinophils Percent Auto 4.3 % (0-4); Hematocrit 42.5 % (42.0-52.0); Hemoglobin 14.7 g/dl (14.0-18.0); Imm Gran Abs Auto 0.02 X10*3/uL (0.00-0.03); Imm Gran Pct Auto 0.2 % (0.0-0.4); Lymphocytes Absolute Auto 2.5 X10*3/uL (1.2-4.9); Lymphocytes Percent Auto 20.8 % (20-40); MANUAL DIFF FLAG NO; Mean Corpuscular HGB Conc 34.6 g/dl (31.0-36.0); Mean Corpuscular Hemoglobin 28.9 pg (27.0-33.0); Mean Corpuscular Volume 83.7 fL (80.0-98.0); Mean Platelet Volume 9.5 fL (9.4-12.4); Monocytes Absolute Auto 0.6 X10*3/uL (0.1-1.2); Monocytes Percent Auto 5.2 % (2-11); Neutrophils Absolute Auto 8.2 x10*3/uL (2.0-8.3); Platelet Count 258 X10*3/uL (160-400); Red Blood Count 5.08 X10*6/uL (4.60-5.80); White Blood Count 11.8 X10*3/uL (4.8-10.8)
[2023-04-29 23:37] LABS: Alanine Aminotransferase 85 U/L (0-40); Albumin Level 4.5 g/dL (3.5-5.0); Alkaline Phosphatase 105 U/L (39-117); Anion Gap 15 (12-20); Aspartate Amino Transferase 28 U/L (5-37); Bilirubin Total 0.4 mg/dL (0.0-1.0); Blood Urea Nitrogen 19 mg/dL (9-16); Calcium 10.1 mg/dL (8.4-10.2); Carbon Dioxide 27 mmol/L (22-29); Chloride 102 mmol/L (96-108); Creatinine Clr Calc Pharmacy 139.7; Estimated Glomerular Filt Rate > 60; Glucose Random 174 mg/dL (60-115); Potassium 4.2 mmol/L (3.3-5.1); Sodium 140 mmol/L (135-145); Total Protein 7.8 g/dL (6.5-8.0)
[2023-04-29 23:45] LABS: Troponin-I High Sensitivity < 2.7 ng/L (<3.5-35.0)
[2023-04-29 23:56] LABS: Influenza A PCR NEGATIVE (Negative); Influenza B PCR NEGATIVE (Negative); Resp Syncy Virus RNA Qual PCR NEGATIVE (Negative); SARS COV2 PCR INHOUSE NEGATIVE (Negative)
== END 2023-04-30 01:15 | disposition left against medical advice (07) ==
PROVIDERS: Emergency Provider Emergency Medicine
DX: R07.9 Chest pain, unspecified (principal); Z20.822 Contact with and (suspected) exposure to COVID-19; Z20.828 Contact with and (suspected) exposure to other viral communicable diseases; Z53.21 Procedure and treatment not carried out due to patient leaving prior to being seen by health care provider
CPT/HCPCS: 0241U; 71045; 80053; 84484; 85025; 93005; 99283

== ENCOUNTER → 2023-04-29 22:33 | Outpatient (BNV) | payer SELFPAY | PROVIDERS: Emergency Provider Emergency Medicine; Visit Provider Internal Medicine | DX: R00.0 Tachycardia, unspecified (principal) | CPT/HCPCS: 93010 ==

== ENCOUNTER 2023-05-02 01:36 | Emergency (ER) | payer SELFPAY | END 2023-05-02 02:50 | disposition left against medical advice (07) | PROVIDERS: Emergency Provider Emergency Medicine | DX: Z53.21 Procedure and treatment not carried out due to patient leaving prior to being seen by health care provider (principal); J02.9 Acute pharyngitis, unspecified; R11.10 Vomiting, unspecified ==

== ENCOUNTER 2023-05-14 14:48 | Outpatient (AMB) | payer SELFPAY ==
--- NOTE | 2023-05-14 14:53 | A.OFFVIS_ITS ---
Intake Vital Signs 05/14/23 15:02 BP 126/78 Blood Pressure Location Lt radial Position Sitting Pulse 76 Pulse Source Pulse Oximeter Pulse Oximetry (%) 98 Oxygen Delivery Method Room Air Intake Visit Reasons: MAT Visit Intake Note: THE PATIENT PRESENTS FOR A MAT VISIT Zinc Plater Required: No Allergies pineapple [Pineapple] Allergy (Unknown, Verified 05/14/23 15:04) HIVES naloxone Adverse Reaction (Intermediate, Verified 05/14/23 15:04) Vomiting Pineapples Allergy (Unknown, Uncoded 05/14/23 15:04) Unknown Do you need a note to return to daycare/school/sports/work: No HPI MAT Visit HPI Details Patient presents for follow up Currently prescribed Suboxone 8mg TID However sometimes takes 2 films daily Discussed the injection Has been working very long days [facility] Medical History (Updated 05/14/23 @ 15:18 by Lela Marrufo CNP) Opioid use disorder, severe, in early remission Cocaine use disorder KEO (generalized anxiety disorder) Depression Opioid use disorder Social History Patient Tobacco Use Status: Current everyday Tobacco user Substance Use Type: Marijuana Review of Systems Const Reports as per HPI Physical Exam Vital Signs: Last Vital Signs Pulse 76 05/14/23 15:02 BP 126/78 05/14/23 15:02 Pulse Ox 98 05/14/23 15:02 Oxygen Delivery Method Room Air 05/14/23 15:02 Const General: cooperative and anxious Nutritional Appearance: overweight Orientation/consciousness: patient oriented x3 Neuro General: patient oriented x3 Psych Appearance: well kempt Speech and movement: Clear speech present Attitude: cooperative Thought process: Circumstantial thought process present Assessment & Plan Assessment & Plan (1) Opioid use disorder, severe, in sustained remission: Code(s): F11.21 - Opioid dependence, in remission Plan * continue suboxone at current dose * follow up 4 weeks Medications: Refilled buprenorphine HCl 8 mg sublingual TID 90 tabs 0RF Coding Level of Care Code Est Pt Level 3 (78202) Diagnoses Opioid use disorder, severe, in sustained remission F11.21
[2023-05-14 15:02] VITALS: BP 126/78; PULSE 76; O2SAT 98
== END 2023-05-14 15:45 | disposition home or self-care (01) ==
PROVIDERS: Visit Provider Nurse Practitioner Psychiatric/Mental Health
DX: F11.21 Opioid dependence, in remission (principal)
CPT/HCPCS: 99213

== ENCOUNTER → 2023-05-14 14:48 | Outpatient (BNVA) | payer SELFPAY | PROVIDERS: Visit Provider Nurse Practitioner Psychiatric/Mental Health | DX: F11.20 Opioid dependence, uncomplicated (principal) | CPT/HCPCS: 99212 ==

== ENCOUNTER 2023-06-11 15:23 | Outpatient (AMB) | payer MEDICAID, SELFPAY ==
[2023-06-11 15:31] VITALS: BP 126/84; PULSE 95; O2SAT 96
--- NOTE | 2023-06-11 15:31 | A.OFFVISCC_ITS ---
Intake Vital Signs 06/11/23 15:31 BP 126/84 Blood Pressure Location Lt radial Position Sitting Pulse 95 Pulse Source Pulse Oximeter Pulse Oximetry (%) 96 Oxygen Delivery Method Room Air Intake Visit Reasons: MAT Visit Intake Note: the patient presents for a mat visit News Camera Person Required: No Allergies pineapple [Pineapple] Allergy (Unknown, Verified 06/11/23 15:34) HIVES naloxone Adverse Reaction (Intermediate, Verified 06/11/23 15:34) Vomiting Pineapples Allergy (Unknown, Uncoded 06/11/23 15:34) Unknown Do you need a note to return to daycare/school/sports/work: No HPI MAT Visit HPI Details Patient presents for follow up Doing well with recovery continues to experience heart flutters no longer smoking marijuana/or edibles (about one month) All signed up with insurance now Working often cardiology referral was sent--has not heard back from them yet. Did start therapy. [facility] Medical History (Updated 06/04/23 @ 16:07 by Debbie Sears NP) KEO (generalized anxiety disorder) Opioid use disorder, severe, in early remission Cocaine use disorder Depression Opioid use disorder Social History Patient Tobacco Use Status: Current everyday Tobacco user Substance Use Type: Marijuana Review of Systems Const Reports as per HPI and Reports no additional complaints Physical Exam Vital Signs: Last Vital Signs Pulse 95 06/11/23 15:31 BP 126/84 06/11/23 15:31 Pulse Ox 96 06/11/23 15:31 Oxygen Delivery Method Room Air 06/11/23 15:31 Const General: cooperative and anxious Nutritional Appearance: overweight Orientation/consciousness: patient oriented x3 Neuro General: patient oriented x3 Psych Appearance: well kempt Speech and movement: Clear speech present Attitude: cooperative Assessment & Plan Assessment & Plan (1) Opioid use disorder, severe, in sustained remission: Code(s): F11.21 - Opioid dependence, in remission Plan * continue suboxone at current dose * follow up 4 weeks * RN to check in regarding referral Medications: Refilled buprenorphine HCl 8 mg sublingual TID 90 tabs 0RF Discontinued trazodone Discontinued Reason: Patient no longer taking 75 mg (1.5 x 50 mg) PO BEDTIME PRN 45 tabs 2RF sleep clonidine HCl Discontinued Reason: Patient no longer taking 0.1 mg PO BID 10 tabs 0RF Coding Level of Care Code Est Pt Level 3 (73917) Diagnoses Opioid use disorder, severe, in sustained remission F11.21
== END 2023-06-11 16:10 | disposition home or self-care (01) ==
PROVIDERS: Visit Provider Nurse Practitioner Psychiatric/Mental Health
DX: F11.21 Opioid dependence, in remission (principal)
CPT/HCPCS: 99213

== ENCOUNTER → 2023-06-11 15:23 | Outpatient (BNVA) | payer MEDICAID, SELFPAY | PROVIDERS: Visit Provider Nurse Practitioner Psychiatric/Mental Health | DX: F11.21 Opioid dependence, in remission (principal) | CPT/HCPCS: 99212 ==

== ENCOUNTER 2023-07-09 15:50 | Outpatient (AMB) | payer MEDICAID, SELFPAY ==
--- NOTE | 2023-07-09 15:50 | A.OFFVISCC_ITS ---
Intake Vital Signs 07/09/23 15:53 Height 5 ft 5 in Weight 242 lb BMI 40.3 BP 116/70 Blood Pressure Location Lt radial Position Sitting Pulse 90 Pulse Source Pulse Oximeter Pulse Oximetry (%) 95 Oxygen Delivery Method Room Air Intake Visit Reasons: MAT Visit Intake Note: thee patient presents for a mat visit Property Coordinator Required: No Allergies pineapple [Pineapple] Allergy (Unknown, Verified 07/09/23 16:02) HIVES naloxone Adverse Reaction (Intermediate, Verified 07/09/23 16:02) Vomiting Pineapples Allergy (Unknown, Uncoded 07/09/23 16:02) Unknown Do you need a note to return to daycare/school/sports/work: No HPI MAT Visit HPI Details Patient presents for follow up Currently prescribed Suboxone 8mg TID Doing well with recovery Still working fulltime Spending time with family [facility] Medical History (Updated 06/04/23 @ 16:07 by Debbie Sears NP) KEO (generalized anxiety disorder) Opioid use disorder, severe, in early remission Cocaine use disorder Depression Opioid use disorder Social History Patient Tobacco Use Status: Current everyday Tobacco user Substance Use Type: Marijuana Review of Systems Const Reports as per HPI and Reports no additional complaints Physical Exam Vital Signs: Last Vital Signs Pulse 90 07/09/23 15:53 BP 116/70 07/09/23 15:53 Pulse Ox 95 07/09/23 15:53 Oxygen Delivery Method Room Air 07/09/23 15:53 BMI result Body Mass Index 40.3 Const General: cooperative Nutritional Appearance: overweight Orientation/consciousness: patient oriented x3 Neuro General: patient oriented x3 Psych Appearance: well kempt Speech and movement: Clear speech present Attitude: cooperative Results AMB 14 Panel Urine Drug Screen Urine Marijuana (THC) Negative Last Edit by Jaki Toribio CMA on 07/09/23 16:04 Urine Cocaine Negative Last Edit by Jaki Toribio CMA on 07/09/23 16:04 Urine Morphine Negative Last Edit by Jaki Toribio CMA on 07/09/23 16:04 Urine Methamphetamine Negative Last Edit by Jaki Toribio CMA on 07/09/23 16:04 Urine Amphetamine Negative Last Edit by Jaki Toribio CMA on 07/09/23 16:0 4 Urine Benzodiazepine Negative Last Edit by Jaki Toribio CMA on 07/09/23 16:04 Urine Barbiturates Negative Last Edit by Jaki Toribio CMA on 07/09/23 16: 04 Urine Methadone Negative Last Edit by Jaki Toribio CMA on 07/09/23 16:04 Urine Buprenorphine Positive Last Edit by Jaki Toribio CMA on 07/09/23 16 :04 Urine Tricyclic Antidepressant Negative Last Edit by Jaki Toribio CMA on 07/09/23 16:04 Urine MDMA Negative Last Edit by Jaki Toribio CMA on 07/09/23 16:04 Urine Oxycodone Negative Last Edit by Jaki Toribio CMA on 07/09/23 16:04 Urine Phencyclidine Negative Last Edit by Jaki Toribio CMA on 07/09/23 16 :04 Urine Propoxyphene Negative Last Edit by Jaki Toribio CMA on 07/09/23 16: 04 Results Reviewed Results Reviewed: Laboratory Last Values POC Urine Buprenorphine Positive 07/09/23 16:03 POC Urine Morphine Negative 07/09/23 16:03 POC Urine Oxycodone Negative 07/09/23 16:03 POC Urine Methadone Negative 07/09/23 16:03 POC Urine Propoxyphene Negative 07/09/23 16:03 POC Urine Barbiturates Negative 07/09/23 16:03 POC U Tricyclic Antidpr Negative 07/09/23 16:03 POC Urine PCP Negative 07/09/23 16:03 POC Ur Amphetamines Negative 07/09/23 16:03 POC Ur Methamphetamine Negative 07/09/23 16:03 POC Urine MDMA Negative 07/09/23 16:03 POC Ur Benzodiazepine Negative 07/09/23 16:03 POC Urine Cocaine Negative 07/09/23 16:03 POC Ur Marijuana (THC) Negative 07/09/23 16:03 Assessment & Plan Assessment & Plan (1) Opioid use disorder, severe, in sustained remission: Code(s): F11.21 - Opioid dependence, in remission Plan * continue suboxone at current dose * follow up 4 weeks * sleep study referral to be sent Orders: Orders AMB 14 Panel Urine Drug Screen Today Z51.81 - Encounter for therapeutic drug level monitoring Medications: Refilled buprenorphine HCl 8 mg sublingual TID 90 tabs 0RF hydroxyzine HCl 25 mg PO TID PRN 90 tabs 1RF anxiety Coding Level of Care Code Est Pt Level 3 (75832) Diagnoses Opioid use disorder, severe, in sustained remission F11.21
[2023-07-09 15:53] VITALS: BP 116/70; PULSE 90; O2SAT 95; BMI 40.3
== END 2023-07-09 16:35 | disposition home or self-care (01) ==
PROVIDERS: Visit Provider Nurse Practitioner Psychiatric/Mental Health
DX: F11.21 Opioid dependence, in remission (principal); Z51.81 Encounter for therapeutic drug level monitoring
CPT/HCPCS: 99213

== ENCOUNTER → 2023-07-09 15:50 | Outpatient (BNVA) | payer MEDICAID, SELFPAY | PROVIDERS: Visit Provider Nurse Practitioner Psychiatric/Mental Health | DX: F11.21 Opioid dependence, in remission (principal) | CPT/HCPCS: 80305; 99212 ==

== ENCOUNTER 2023-07-17 23:41 | Emergency (ER) | payer MEDICAID, SELFPAY ==
--- NOTE | ~2023-07-17 | XR_ITS ---
EXAMINATION: XR CHEST CLINICAL INFORMATION: Shortness of breath. COMPARISON: 04/29/2023. TECHNIQUE: Frontal view of the chest was obtained. FINDINGS: No significant abnormality is noted involving the heart, lungs, mediastinum, bony thorax or soft tissues. XR/XR chest 1V IMPRESSION: Unremarkable examination.
[2023-07-17 23:51] VITALS: BP 144/73; PULSE 92; RESP 20; TEMP 36.4; O2SAT 97; BMI 34.9
--- NOTE | 2023-07-18 00:09 | ED.ASTHMA ---
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 He notes his asthma has been acting up and he has been using INH with little relief. He also had some chest tightness and had some anxiety and heart racing. He has been anxious. MD complaint: asthma attack , shortness of breath and wheezing Onset (ago): day(s) (yesterday) Severity: moderate Context: allergen exposure and cleaning product exposure Associated symptoms: dry cough Asthma History: childhood onset Treatments Prior to Arrival: inhaled bronchodilator Related Data Previous Rx's Medication Instructions Recorded sennosides 8.6 mg capsule (senna) 8.6 mg PO DAILY #30 caps 02/13/22 docusate sodium 50 mg capsule 50 mg PO DAILY PRN constipation 09/18/22 (Colace Clear) #30 caps polyethylene glycol 3350 17 17 g PO DAILY PRN constipation 03/02/23 gram/dose oral powder #119 grams buprenorphine HCl 8 mg sublingual 8 mg sublingual TID #90 tabs 07/09/23 tablet hydroxyzine HCl 25 mg tablet 25 mg PO TID PRN anxiety #90 tabs 07/09/23 prednisone 20 mg tablet 40 mg (2 x 20 mg) PO DAILY 4 days 07/18/23 #8 tabs Allergies Allergy/AdvReac Type Severity Reaction Status Date / Time pineapple [Pineapple] Allergy Unknown HIVES Verified 07/17/23 23:50 naloxone AdvReac Intermediate Vomiting Verified 07/09/23 16:02 Pineapples Allergy Unknown Unknown Uncoded 07/09/23 16:02 Review of Systems Review of Systems: Constitutional : No Fever, No Chills ENT/Mouth : No Hoarseness, No sore throat, No Rhinorrhea Eyes: No Redness, No Discharge, No Vision Changes Cardiovascular : No Chest Pain, positive SOB, No Edema Respiratory : positive Cough, No Sputum, positive Wheezing, Gastrointestinal : No Nausea, No Vomiting, No Diarrhea, No abdominal Pain Genitourinary : No Dysuria, No Hematuria Musculoskeletal : No joint pain, No Myalgias Skin : No rash Neuro : No Weakness, No Numbness, No Headache Psych : No anxiety, depression Heme/Lymph: No Bruising, No Bleeding All other systems reviewed and are negative [facility] Past Medical History Attestation statement: The following information was validated with the patient. Source: old records reviewed Medical History KEO (generalized anxiety disorder) Opioid use disorder, severe, in early remission Cocaine use disorder Depression Opioid use disorder Social History Social History Patient Tobacco Use Status: Current everyday Tobacco user Substance Use Type: Marijuana Advance Directives: No Advance Directives Information Provided: No Physical Exam Vital Signs: Vital Signs: Last Vital Signs Temp 97.5 F 07/17/23 23:51 Pulse 94 07/18/23 00:22 Resp 18 07/18/23 00:22 BP 144/73 H 07/17/23 23:51 Pulse Ox 97 07/17/23 23:51 O2 Del Method Room Air 07/17/23 23:51 BMI result Body Mass Index 34.9 Appearance: Alert. Oriented X3. No acute distress. Playing on phone no distress Eyes: Pupils equal, round and reactive to light. ENT: Pharynx normal. Neck: Normal inspection. Neck supple. CVS: Normal heart rate and rhythm. Pulses normal. Respiratory: No respiratory distress. Breath sounds no wheezes but mininimally diminished on exam Abdomen: Soft and nontender. Skin: Skin warm and dry. Normal skin color. Normal skin turgor. Extremities: No lower extremity edema. No calf ttp Neuro: Oriented X 3. No motor deficit. No sensory deficit. Medications Administered Discontinued Medications Generic Name Dose Route Start Last Admin Trade Name Freq PRN Reason Stop Dose Admin Albuterol Sulfate 2.5 mg/ 0 mg 07/18/23 00:17 07/18/23 00:20 Albuterol/Ipratropium 3 ml INHALE 07/18/23 00:18 2.5 dose ONCE ONE Administration Medical Decision Making Medical Decision Making MDM Narrative: 33 yo male with PMH of opiate use disorder, cocaine abuse, asthma, anxiety here with cough wheezing and dyspnea after dust exposure at work he also felt a tight chest and anxiety earlier. I do not suspect VTE he is PERC negative, he has no ACS risk factors and symptoms are atypical. At this time will give duoneb for mild symptoms and given no improvement with therapy at home will start on prednisone burst. Chest xray negative for acute pneumonia/PTX Differential Diagnosis Differential Diagnoses: The differential diagnosis associated with the presentation includes reactive airway disease, asthma Admission/Observation Consideration of admission/observation: Escalation of care including admission/observation considered Independent Interpretation I performed an independent interpretation of an: Plain X-Ray (normal ) Radiology Impression Discussion of test interpretation with radiology: I have reviewed the radiologist's reading. External Record Review External record reviewed: Inpatient record Prescription Management I considered prescription management with: Other Discharge Plan Discharge Clinical Impression: Asthma with exacerbation Qualifiers: Asthma severity: mild Asthma persistence: persistent Qualified Code(s): J45.31 - Mild persistent asthma with (acute) exacerbation Patient Disposition: Home, Self-Care Instructions: Asthma (ED) Additional Instructions: avoid allergen exposure for the next couple of days. continue your inhaler. your chest xray was normal return for worsening symptoms or concerns. fill prednisone and start Prescriptions: New prednisone 20 mg tablet 40 mg PO DAILY 4 Days Qty: 8 0RF No Action senna 8.6 mg capsule 8.6 mg PO DAILY Qty: 30 0RF polyethylene glycol 3350 17 gram/dose powder 17 g PO DAILY PRN (Reason: constipation) Qty: 119 0RF buprenorphine HCl 8 mg tablet, sublingual 8 mg sublingual TID Qty: 90 0RF hydroxyzine HCl 25 mg tablet 25 mg PO TID PRN (Reason: anxiety) Qty: 90 1RF Colace Clear 50 mg capsule 50 mg PO DAILY PRN (Reason: constipation) Qty: 30 1RF Stand Alone Forms: Work/School Release
[2023-07-18] MEDS: Albuterol Sulfate 2.5 MG, Albuterol/Iprat 2.5/0.5MG 3 ML 3 ML INHALE (00:20)
[2023-07-18 00:22] VITALS: PULSE 94; RESP 18; O2SAT 97
[2023-07-18 00:32] VITALS: BP 141/59; PULSE 90; RESP 16; TEMP 37; O2SAT 98
[2023-07-18] MEDS: predniSONE 20 MG TABLET 40 MG PO (00:46)
== END 2023-07-18 00:55 | disposition home or self-care (01) ==
PROVIDERS: Emergency Provider Emergency Medicine
DX: J45.31 Mild persistent asthma with (acute) exacerbation (principal); R07.89 Other chest pain; R06.02 Shortness of breath; Z79.899 Other long term (current) drug therapy
CPT/HCPCS: 71045; 94640; 99284

== ENCOUNTER 2023-08-03 21:03 | Emergency (ER) | payer MEDICAID, SELFPAY ==
--- NOTE | 2023-08-03 | ECG_ITS ---
Test Reason : CHEST PAIN Blood Pressure : / mmHG Vent. Rate : 091 BPM Atrial Rate : 091 BPM P-R Int : 150 ms QRS Dur : 096 ms QT Int : 352 ms P-R-T Axes : 015 011 005 degrees QTc Int : 432 ms Normal sinus rhythm Normal ECG When compared with ECG of 29-APR-2023 22:33, No significant change was found Referred By: Generic ED Physician Electronically Signed By:NEREYDA YAN MD
--- NOTE | ~2023-08-03 | XR_ITS ---
EXAMINATION: XR CHEST CLINICAL INFORMATION: Chest pain. COMPARISON: Chest radiograph dated 07/18/2023. TECHNIQUE: Frontal view of the chest was obtained. FINDINGS: The trachea is in normal anatomic position. Heart size is normal. The lungs are clear. Pleural spaces are clear. No pneumothorax. No acute osseous abnormality. XR/XR chest 1V IMPRESSION: No acute cardiopulmonary disease. Stable appearance of the heart and lungs.
[2023-08-03 21:05] VITALS: BP 145/72; PULSE 89; RESP 20; TEMP 37.1; O2SAT 95; BMI 37.2
[2023-08-03 21:31] LABS: MANUAL DIFF FLAG NO
[2023-08-03 21:32] LABS: Basophils Absolute Auto 0.1 X10*3/uL (0.0-0.2); Basophils Percent Auto 0.6 % (0-2); Eosinophils Absolute Auto 0.5 X10*3/uL (0.0-0.4); Eosinophils Percent Auto 5.8 % (0-4); Hematocrit 39.4 % (42.0-52.0); Hemoglobin 13.9 g/dl (14.0-18.0); Imm Gran Abs Auto 0.02 X10*3/uL (0.00-0.03); Imm Gran Pct Auto 0.2 % (0.0-0.4); Lymphocytes Absolute Auto 3.9 X10*3/uL (1.2-4.9); Lymphocytes Percent Auto 43.2 % (20-40); Mean Corpuscular HGB Conc 35.3 g/dl (31.0-36.0); Mean Corpuscular Hemoglobin 28.6 pg (27.0-33.0); Mean Corpuscular Volume 81.1 fL (80.0-98.0); Mean Platelet Volume 9.6 fL (9.4-12.4); Monocytes Absolute Auto 0.6 X10*3/uL (0.1-1.2); Neutrophils Absolute Auto 3.9 x10*3/uL (2.0-8.3); Neutrophils Percent Auto 43.2 % (45-73); Platelet Count 269 X10*3/uL (160-400); Red Blood Count 4.86 X10*6/uL (4.60-5.80); Red Cell Distribution Width 12.1 % (11.0-16.0); White Blood Count 9.1 X10*3/uL (4.8-10.8)
[2023-08-03 21:54] LABS: Troponin-I High Sensitivity < 2.7 ng/L (<3.5-35.0)
--- NOTE | 2023-08-04 00:57 | ED_ITS ---
HPI - Anxiety General Chief Complaint: General Medical Stated Complaint: chest hurt/feel off Time Seen by Provider: 08/04/23 00:53 Source: patient and old records reviewed Mode of arrival: ambulatory Limitations: no limitations History of Present Illness HPI narrative: 36 yo male with PMH of opiate disorder, anxiety had an okay night and then felt panicked and overall his vision felt funny he had to side puller and it lasted about an hour. He feels fine now has holter monitor appointment coming up. He notes now after taking hydroxyzine he feels better and wants to go home and sleep. MD complaint: anxiety and shortness of breath Onset (ago): minute(s) (prior to arrival ) Symptoms: dyspnea, palpitations and sense of impending doom Severity: moderate Quality: improving (resolved) Place: home History of similar episodes: Yes Provoking factors: none known Relieving factors: rest Exacerbating factors: nothing Associated symptoms: denies other symptoms Related Data Previous Rx's Medication Instructions Recorded sennosides 8.6 mg capsule (senna) 8.6 mg PO DAILY #30 caps 02/13/22 docusate sodium 50 mg capsule 50 mg PO DAILY PRN constipation 09/18/22 (Colace Clear) #30 caps polyethylene glycol 3350 17 17 g PO DAILY PRN constipation 03/02/23 gram/dose oral powder #119 grams buprenorphine HCl 8 mg sublingual 8 mg sublingual TID #90 tabs 07/09/23 tablet hydroxyzine HCl 25 mg tablet 25 mg PO TID PRN anxiety #90 tabs 07/09/23 prednisone 20 mg tablet 40 mg (2 x 20 mg) PO DAILY 4 days 07/18/23 #8 tabs Allergies Allergy/AdvReac Type Severity Reaction Status Date / Time pineapple [Pineapple] Allergy Unknown HIVES Verified 07/17/23 23:50 naloxone AdvReac Intermediate Vomiting Verified 07/09/23 16:02 Pineapples Allergy Unknown Unknown Uncoded 07/09/23 16:02 Review of Systems 2 Review of Systems: Constitutional : No Fever, No Chills ENT/Mouth : No Ear Pain, No Nasal Congestion, No sore throat Eyes: No Eye Pain, No Swelling, No Redness Cardiovascular : No Chest Pain, pos SOB Respiratory : No Cough, No Sputum, No Dyspnea Gastrointestinal : No Nausea, No Vomiting, No Diarrhea, No Hematochezia, No Melena Genitourinary : No Dysuria, No Urinary Frequency, No Hematuria Musculoskeletal : No Myalgias Skin : No Skin Lesions, No rash Neuro : No Weakness, No Numbness, No Paresthesias, No Dizziness, No Headache Psych : positive Anxiety, no Depression All other systems reviewed and are negative [facility] Past Medical History Attestation statement: The following information was validated with the patient. Source: old records reviewed Medical History KEO (generalized anxiety disorder) Opioid use disorder, severe, in early remission Cocaine use disorder Depression Opioid use disorder Social History Social History Patient Tobacco Use Status: Current everyday Tobacco user Substance Use Type: Marijuana Physical Exam 2 Vital Signs: Vital Signs: Last Vital Signs Temp 98.8 F 08/03/23 21:05 Pulse 89 08/03/23 21:05 Resp 20 08/03/23 21:05 BP 145/72 H 08/03/23 21:05 Pulse Ox 95 08/03/23 21:05 O2 Del Method Room Air 08/03/23 21:05 BMI result Body Mass Index 37.2 Appearance: Alert. Oriented X3. No acute distress. Eyes: Pupils equal, round and reactive to light. ENT: Pharynx normal. Neck: Normal inspection. Neck supple. CVS: Normal heart rate and rhythm. Pulses normal. Respiratory: No respiratory distress. Breath sounds normal. Abdomen: Soft and nontender. Skin: Skin warm and dry. Normal skin color. Normal skin turgor. Extremities: No lower extremity edema. No calf ttp Neuro: Oriented X 3. No motor deficit. No sensory deficit. Medical Decision Making Medical Decision Making MDM Narrative: 33 yo male with anxiety, opiate use disorder here with c/o event prior to arrival felt panic, heart racing, vision felt blurry he did take his medications and now feels better at this time not toxic, EKG CXR and troponin ordered. He is getting holter monitor done as outpatient. He is PERC negative. He has distal pulses intact doubt dissection. He is neurologically intact at this time. Differential Diagnosis Differential Diagnoses: The differential diagnosis associated with the presentation includes anxiety, palpitations, med reaction Admission/Observation Consideration of admission/observation: Escalation of care including admission/observation considered work up negative has good outpatient follow up can be DC home Lab Data MDM Lab Attestation statement: I reviewed the patient's lab results. 08/03/23 21:26 Labs: Lab Results 08/03/23 Range/Units 21:26 WBC 9.1 (4.8-10.8) X10*3/uL RBC 4.86 (4.60-5.80) X10*6/uL Hgb 13.9 L (14.0-18.0) g/dl Hct 39.4 L (42.0-52.0) % MCV 81.1 (80.0-98.0) fL MCH 28.6 (27.0-33.0) pg MCHC 35.3 (31.0-36.0) g/dl RDW 12.1 (11.0-16.0) % Plt Count 269 (160-400) X10*3/uL MPV 9.6 (9.4-12.4) fL Immature Gran % (Auto) 0.2 (0.0-0.4) % Neut % (Auto) 43.2 L (45-73) % Lymph % (Auto) 43.2 H (20-40) % [place] % (Auto) 7.0 (2-11) % Eos % (Auto) 5.8 H (0-4) % Baso % (Auto) 0.6 (0-2) % Lymph # (Auto) 3.9 (1.2-4.9) X10*3/uL [place] # (Auto) 0.6 (0.1-1.2) X10*3/uL Eos # (Auto) 0.5 H (0.0-0.4) X10*3/uL Baso # (Auto) 0.1 (0.0-0.2) X10*3/uL Abs Immat Gran (auto) 0.02 (0.00-0.03) X10*3/uL Absolute Neuts (auto) 3.9 (2.0-8.3) x10*3/uL Absolute Nucleated RBC 0.000 (0.0-0.012) X10*3/uL Nucleated RBC % (auto) 0.0 (0.0-0.2) /100WBC Troponin I High Sens < 2.7 (<3.5-35.0) ng/L Independent Interpretation I performed an independent interpretation of an: EKG and Plain X-Ray (normal ) Interpretation: Rate: 91 Rhythm: NSR [place]: normal Normal P waves. Normal KANWAL. Normal QRS complex. ST T wave : no EDWIN, inverted t wave III qTC: normal prior studies: no acute ischemia The study has been interpreted contemporaneously by me. . Radiology Impression Discussion of test interpretation with radiology: I have reviewed the radiologist's reading. External Record Review External record reviewed: Inpatient record Discharge Plan Discharge Clinical Impression: Panic attack Patient Disposition: Home, Self-Care Instructions: Anxiety (ED), Panic Attack (ED) Additional Instructions: labs, EKG and chest xray are normal please return for any worsening symptoms or concerns. Prescriptions: No Action prednisone 20 mg tablet 40 mg PO DAILY 4 Days Qty: 8 0RF senna 8.6 mg capsule 8.6 mg PO DAILY Qty: 30 0RF polyethylene glycol 3350 17 gram/dose powder 17 g PO DAILY PRN (Reason: constipation) Qty: 119 0RF buprenorphine HCl 8 mg tablet, sublingual 8 mg sublingual TID Qty: 90 0RF hydroxyzine HCl 25 mg tablet 25 mg PO TID PRN (Reason: anxiety) Qty: 90 1RF Colace Clear 50 mg capsule 50 mg PO DAILY PRN (Reason: constipation) Qty: 30 1RF
[2023-08-04 01:07] VITALS: BP 148/77; PULSE 68; RESP 16; TEMP 36.5; O2SAT 95
== END 2023-08-04 01:20 | disposition home or self-care (01) ==
LOC: HO.ED 08-04 01:11
PROVIDERS: Emergency Provider Emergency Medicine
DX: F41.0 Panic disorder [episodic paroxysmal anxiety] (principal); R07.89 Other chest pain; R06.02 Shortness of breath; Z79.899 Other long term (current) drug therapy
CPT/HCPCS: 36415; 71045; 84484; 85025; 93005; 99283; 99284

== ENCOUNTER → 2023-08-03 21:20 | Outpatient (BNV) | payer MEDICAID, SELFPAY | PROVIDERS: Emergency Provider Emergency Medicine; Visit Provider Internal Medicine Cardiovascular Disease | DX: R07.9 Chest pain, unspecified (principal) | CPT/HCPCS: 93010 ==

== ENCOUNTER 2023-08-06 14:52 | Outpatient (AMB) | payer MEDICAID, SELFPAY ==
[2023-08-06 15:06] VITALS: BP 132/86; PULSE 84; O2SAT 96
--- NOTE | 2023-08-06 15:06 | A.OFFVISCC_ITS ---
Intake Vital Signs 08/06/23 15:06 BP 132/86 Blood Pressure Location Lt radial Position Sitting Pulse 84 Pulse Source Pulse Oximeter Pulse Oximetry (%) 96 Oxygen Delivery Method Room Air Intake Visit Reasons: MAT Visit Intake Note: the patient presents for a mat visit Physical Science Technician Required: No Allergies pineapple [Pineapple] Allergy (Unknown, Verified 08/06/23 15:07) HIVES naloxone Adverse Reaction (Intermediate, Verified 08/06/23 15:07) Vomiting Pineapples Allergy (Unknown, Uncoded 08/06/23 15:07) Unknown HPI MAT Visit HPI Details Patient presents for follow up recent ED visit for what he reports as vision going black all exams WNL--sx improved with hydroxyzine discussed increasing anxiety and SOB acknowledged significant weight gain and how this can contribute to many of the sx he has been reporting already has cardiology appt pending no issues related to suboxone [facility] Medical History KEO (generalized anxiety disorder) Opioid use disorder, severe, in early remission Cocaine use disorder Depression Opioid use disorder Social History Patient Tobacco Use Status: Current everyday Tobacco user Substance Use Type: Marijuana Review of Systems Const Reports as per HPI Physical Exam Vital Signs: Last Vital Signs Pulse 84 08/06/23 15:06 BP 132/86 08/06/23 15:06 Pulse Ox 96 08/06/23 15:06 Oxygen Delivery Method Room Air 08/06/23 15:06 Const General: cooperative and anxious Nutritional Appearance: overweight Orientation/consciousness: patient oriented x3 Neuro General: patient oriented x3 Results AMB 14 Panel Urine Drug Screen Urine Marijuana (THC) Negative Last Edit by Jaki Toribio CMA on 08/06/23 15:09 Urine Cocaine Negative Last Edit by Jaki Toribio CMA on 08/06/23 15:09 Urine Morphine Negative Last Edit by Jaki Toribio CMA on 08/06/23 15:09 Urine Methamphetamine Negative Last Edit by Jaki Toribio CMA on 08/06/23 15:09 Urine Amphetamine Negative Last Edit by Jaki Toribio CMA on 08/06/23 15:0 9 Urine Benzodiazepine Negative Last Edit by Jaki Toribio CMA on 08/06/23 15:09 Urine Barbiturates Negative Last Edit by Jaki Toribio CMA on 08/06/23 15: 09 Urine Methadone Negative Last Edit by Jaki Toribio CMA on 08/06/23 15:09 Urine Buprenorphine Positive Last Edit by Jaki Toribio CMA on 08/06/23 15 :09 Urine Tricyclic Antidepressant Negative Last Edit by Jaki Toribio CMA on 08/06/23 15:09 Urine MDMA Negative Last Edit by Jaki Toribio CMA on 08/06/23 15:09 Urine Oxycodone Negative Last Edit by Jaki Toribio CMA on 08/06/23 15:09 Urine Phencyclidine Negative Last Edit by Jaki Toribio CMA on 08/06/23 15 :09 Urine Propoxyphene Negative Last Edit by Jaki Toribio CMA on 08/06/23 15: 09 Results Reviewed Results Reviewed: Laboratory Last Values POC Urine Buprenorphine Positive 08/06/23 15:08 POC Urine Morphine Negative 08/06/23 15:08 POC Urine Oxycodone Negative 08/06/23 15:08 POC Urine Methadone Negative 08/06/23 15:08 POC Urine Propoxyphene Negative 08/06/23 15:08 POC Urine Barbiturates Negative 08/06/23 15:08 POC U Tricyclic Antidpr Negative 08/06/23 15:08 POC Urine PCP Negative 08/06/23 15:08 POC Ur Amphetamines Negative 08/06/23 15:08 POC Ur Methamphetamine Negative 08/06/23 15:08 POC Urine MDMA Negative 08/06/23 15:08 POC Ur Benzodiazepine Negative 08/06/23 15:08 POC Urine Cocaine Negative 08/06/23 15:08 POC Ur Marijuana (THC) Negative 08/06/23 15:08 Assessment & Plan Assessment & Plan (1) Opioid use disorder, severe, in sustained remission: Code(s): F11.21 - Opioid dependence, in remission Plan: * continue suboxone at current dose * follow up 4 weeks Orders: Orders AMB 14 Panel Urine Drug Screen 08/06/23 Z51.81 - Encounter for therapeutic drug level monitoring Medications: Refilled buprenorphine HCl 8 mg sublingual TID 90 tabs 0RF Coding Level of Care Code Est Pt Level 3 (01131) Diagnoses Opioid use disorder, severe, in sustained remission F11.21
== END 2023-08-06 15:38 | disposition home or self-care (01) ==
LOC: HO.HCC 14:52
PROVIDERS: Visit Provider Nurse Practitioner Psychiatric/Mental Health
DX: F11.21 Opioid dependence, in remission (principal)
CPT/HCPCS: 99213

== ENCOUNTER → 2023-08-06 14:52 | Outpatient (BNVA) | payer MEDICAID, SELFPAY | PROVIDERS: Visit Provider Nurse Practitioner Psychiatric/Mental Health | DX: F11.20 Opioid dependence, uncomplicated (principal) | CPT/HCPCS: 80305; 99212 ==

== ENCOUNTER → 2023-09-02 14:19 | Outpatient (BNVA) | payer MEDICAID, SELFPAY | PROVIDERS: Visit Provider Internal Medicine Cardiovascular Disease | DX: R00.2 Palpitations (principal); R06.02 Shortness of breath; R06.81 Apnea, not elsewhere classified; R40.0 Somnolence; F11.21 Opioid dependence, in remission; F14.20 Cocaine dependence, uncomplicated; F41.1 Generalized anxiety disorder; Z79.899 Other long term (current) drug therapy | CPT/HCPCS: 99212 ==

== ENCOUNTER 2023-09-02 14:20 | Outpatient (AMB) | payer MEDICAID, SELFPAY ==
[2023-09-02 14:36] VITALS: BP 110/74; PULSE 86; BMI 37.3
--- NOTE | 2023-09-02 14:36 | MHC.OFFVIS ---
Intake Vital Signs 09/02/23 14:36 Height 5 ft 10 in Weight 260 lb 2.327 oz BMI 37.3 BP 110/74 Blood Pressure Location Lt brachial Position Sitting Pulse 86 Intake Visit Reasons: chest pain Intake Note: New patient dx chest pain c/o chest pain mostly at night University Administrator Required: No Allergies pineapple [Pineapple] Allergy (Unknown, Verified 08/06/23 15:07) HIVES naloxone Adverse Reaction (Intermediate, Verified 08/06/23 15:07) Vomiting Pineapples Allergy (Unknown, Uncoded 08/06/23 15:07) Unknown Medication List - Last Reconciled 09/02/23 by Keyon Cantrell MD buprenorphine HCl 8 mg sublingual TID hydroxyzine HCl 25 mg PO TID PRN HPI HPI Comments History of Present Illness Details Edgar was referred here for evaluation of palpitation and shortness of breath. Edgar is a recovering addict who has been clean for 2 years currently using Suboxone. He had multi substance abuse disorder in the past and says this was due to his general anxiety disorder. He continues to remain very anxious. He said he is taking all her medications and he gets very anxious still. However he suffering from symptoms of palpitation. He says when he sleeping he suddenly feels fluttering in his chest which wakes him up and gets him concerned and then he notices that he gets into a panic reaction and then his heart rate jumps up. He was monitoring his heart rate at home and would easily go up to 151 60 beats per minute and will get very concerned he is come to the emergency room since then. No significant arrhythmias or pathologic findings have been found. He is normal electrolytes. Normal TSH. His troponins have been negative. His sugars are slightly elevated but he says borderline diabetes with hemoglobin A1c of 5.9% he wants to start exercising but he is concerned because of his elevated heart rate. He said he is very concerned about this because of his grandmother passing away at age 62 with a sudden myocardial infarction but she was a smoker. He is also smoker and trying to quit. He appears extremely anxious. He however reports that at nighttime he is noted to have apneic episodes and he wakes up sometimes shortness of breath. He also has daytime somnolence. He drinks a lot of soda and not a lot of water. [facility] Medical History KEO (generalized anxiety disorder) Opioid use disorder, severe, in early remission Cocaine use disorder Depression Opioid use disorder Social History Patient Tobacco Use Status: Current everyday Tobacco user Substance Use Type: Marijuana Review of Systems Const Denies chills, Denies daytime sleepiness, Denies fatigue, Denies fever(s), Denies frequent falls, Denies poor appetite, Denies snoring, Denies stops breathing during sleep, Denies weakness, Denies weight gain and Denies weight loss Eyes Denies loss of vision ENT Denies dizziness and Denies hearing loss Card Denies chest pain, Denies claudication, Denies leg edema, Denies lightheadedness, Denies palpitations, Denies dyspnea, Denies dyspnea on exertion and Denies orthopnea Resp Denies cough, Denies excessive phlegm production, Denies dyspnea, Denies dyspnea on exertion, Denies snoring and Denies wheezing GI Denies abdominal pain, Denies hematochezia, Denies change in bowel habits, Denies nausea and Denies vomiting Denies dysuria and Denies urinary frequency Musc Denies arthralgias, Denies muscle weakness, Denies numbness and Denies other (frequent falls) Skin/Breast Denies nail changes and Denies rash Neuro Denies Abnormal speech present, Denies dizziness, Denies frequent falls, Denies loss of vision, Denies memory loss, Denies numbness and Denies weakness Psych Denies depression and Denies memory loss Endo Denies fatigue and Denies palpitations Juan/Lymph Reports easy bruising and Reports other (anemia) Aller/Immun Denies wheezing Physical Exam Vital Signs: Last Vital Signs Pulse 86 09/02/23 14:36 BP 110/74 09/02/23 14:36 BMI result Body Mass Index 37.3 Const General: cooperative, comfortable, no acute distress, alert, awake and anxious Nutritional Appearance: obese Orientation/consciousness: patient oriented x3 Limitations: no limitations HEENT Head: Yes normocephalic and Yes atraumatic Neck Neck: Yes trachea midline, Yes supple and Yes no JVD Resp Effort & Inspection: normal respiratory effort Auscultation: clear to auscultation bilaterally Cardio Jugular venous distension: no JVD Palpation: normal PMI Rate: regular rate Rhythm: regular rhythm Heart sounds: S1 normal heart sound present, S2 normal heart sound present, no click, no gallops, no murmurs and no rubs GI Auscultation: normal bowel sounds Skin General skin exam: no rashes or lesions noted Neuro General: patient oriented x3 and no focal motor deficits Speech: No Abnormal speech present Extrem General: Yes no clubbing, cyanosis or edema Assessment & Plan Assessment & Plan (1) Heart palpitations: Code(s): R00.2 - Palpitations Plan: Recent onset symptoms of palpitation this young man most likely suggestive extra systoles. However this is causing him to panic and cause him to have probably inappropriate sinus tachycardia related to anxiety/panic attack. This needs to be treated aggressively as this will impact. We discussed about how panic and anxiety attack cause rapid heart rate. We discussed about reducing caffeine intake. Also discussed about generally reducing smoking intake to reduce his long-term risk. I would suggest him to undergo Holter monitor to assess for arrhythmias. If he does have infrequent extra systoles benign prognosis with this was discussed. I would avoid pharmacotherapy at this point time unless he has significant arrhythmias. Also suggest an echocardiogram to evaluate for cardiac structure and function. There is extremely high risk of obstructive sleep apnea which can then cause cardiac arrhythmias. Advised him to have home sleep study. Follow up in the clinic after above-mentioned test. Thank you for allowing me to partake in his care Orders: Orders CA echo transthoracic complete Today R00.2 - Palpitations RT home sleep study Today R06.81 - Apnea, not elsewhere classified, R40.0 - Somnolence ECG holter monitor 48 hour Today R00.2 - Palpitations Coding Level of Care Code New Pt Level 4 (13501) Diagnoses Heart palpitations R00.2
== END 2023-09-02 15:12 | disposition home or self-care (01) ==
PROVIDERS: PCP Student in an Organized Health Care Education/Training Program; Referring Provider Student in an Organized Health Care Education/Training Program; Visit Provider Internal Medicine Cardiovascular Disease
DX: R00.2 Palpitations (principal)
CPT/HCPCS: 99214

== ENCOUNTER 2023-09-03 13:11 | Outpatient (AMB) | payer MEDICAID, SELFPAY ==
--- NOTE | 2023-09-03 13:20 | MHC.AM.SUB ---
Intake Vital Signs 09/03/23 13:21 BP 120/60 Blood Pressure Location Lt brachial Position Sitting Pulse Source Pulse Oximeter Pulse Oximetry (%) 8 L Intake Visit Reasons: MAT Visit Allergies pineapple [Pineapple] Allergy (Unknown, Verified 08/06/23 15:07) HIVES naloxone Adverse Reaction (Intermediate, Verified 08/06/23 15:07) Vomiting Pineapples Allergy (Unknown, Uncoded 08/06/23 15:07) Unknown HPI MAT Visit HPI Details Patient presents for follow up Saw personnel administrator yesterday, feels very positive about visit Has sleep study ordered No issues related to suboxone --active in his recovery [facility] Medical History KEO (generalized anxiety disorder) Opioid use disorder, severe, in early remission Cocaine use disorder Depression Opioid use disorder Social History Patient Tobacco Use Status: Current everyday Tobacco user Substance Use Type: Marijuana Review of Systems Const Reports as per HPI and Reports no additional complaints Physical Exam Vital Signs: Last Vital Signs BP 120/60 09/03/23 13:21 Pulse Ox 8 L 09/03/23 13:21 Const General: cooperative and anxious Nutritional Appearance: overweight Orientation/consciousness: patient oriented x3 Neuro General: patient oriented x3 Assessment & Plan Assessment & Plan (1) Opioid use disorder, severe, in sustained remission: Code(s): F11.21 - Opioid dependence, in remission Plan: continue suboxone at current dose follow up 4 weeks Medications: Refilled hydroxyzine HCl 25 mg PO TID PRN 90 tabs 1RF anxiety buprenorphine HCl 8 mg sublingual TID 90 tabs 0RF Coding Level of Care Code Est Pt Level 3 (82939) Diagnoses Opioid use disorder, severe, in sustained remission F11.21
[2023-09-03 13:21] VITALS: BP 120/60; O2SAT 8
== END 2023-09-03 13:57 | disposition home or self-care (01) ==
PROVIDERS: Visit Provider Nurse Practitioner Psychiatric/Mental Health
DX: F11.21 Opioid dependence, in remission (principal)
CPT/HCPCS: 99213

== ENCOUNTER → 2023-09-03 13:11 | Outpatient (BNVA) | payer MEDICAID, SELFPAY | PROVIDERS: Visit Provider Nurse Practitioner Psychiatric/Mental Health | DX: Z51.81 Encounter for therapeutic drug level monitoring (principal); F11.21 Opioid dependence, in remission | CPT/HCPCS: 99212 ==

== ENCOUNTER 2023-10-15 16:29 | Outpatient (AMB) | payer MEDICAID, SELFPAY ==
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
== END 2023-10-15 17:01 | disposition home or self-care (01) ==
PROVIDERS: Visit Provider Nurse Practitioner Psychiatric/Mental Health
DX: F11.21 Opioid dependence, in remission (principal)
CPT/HCPCS: 99214

== ENCOUNTER → 2023-10-15 16:29 | Outpatient (BNVA) | payer MEDICAID, SELFPAY | PROVIDERS: Visit Provider Nurse Practitioner Psychiatric/Mental Health | DX: F11.21 Opioid dependence, in remission (principal) | CPT/HCPCS: 99212 ==

== ENCOUNTER 2024-02-16 10:25 | Outpatient (AMB) | payer MEDICAID, SELFPAY ==
--- NOTE | 2024-02-16 10:56 | MHC.AM.SUB ---
Intake Visit Reasons: MAT Office Allergies pineapple [Pineapple] Allergy (Unknown, Verified 08/06/23 15:07) HIVES naloxone Adverse Reaction (Intermediate, Verified 08/06/23 15:07) Vomiting Pineapples Allergy (Unknown, Uncoded 08/06/23 15:07) Unknown HPI HPI MAT Office: Details: Patient presents for follow up Currently taking 16mg suboxone daily working FT recent DM2 diagnosis metformin 1000 daily lantus pen BS 790 A1C 04 December Dx Endocrine next month Denies any substance use still not at baseline, in terms of presentation [facility] Medical History KEO (generalized anxiety disorder) Opioid use disorder, severe, in early remission Cocaine use disorder Depression Opioid use disorder Social History Patient Tobacco Use Status: Current everyday Tobacco user Substance Use Type: Marijuana Review of Systems Const Reports as per HPI and Reports no additional complaints Physical Exam Const General: cooperative, healthy appearing, no acute distress and well groomed Assessment & Plan Assessment & Plan (1) Opioid use disorder, severe, in sustained remission: Code(s): F11.21 - Opioid dependence, in remission Category: Medical Plan: dose decreased to 8mg BID as this is what he has been taking follow up 4 weeks Medications: Changed From buprenorphine HCl 8 mg sublingual TID 90 tabs 0RF To buprenorphine HCl 8 mg sublingual BID 60 tabs 0RF
== END 2024-02-16 11:15 | disposition home or self-care (01) ==
PROVIDERS: Visit Provider Nurse Practitioner Psychiatric/Mental Health
DX: F11.21 Opioid dependence, in remission (principal)
CPT/HCPCS: 99214

== ENCOUNTER → 2024-02-16 10:25 | Outpatient (BNVA) | payer MEDICAID, SELFPAY | PROVIDERS: Visit Provider Nurse Practitioner Psychiatric/Mental Health | DX: F11.21 Opioid dependence, in remission (principal); Z79.899 Other long term (current) drug therapy | CPT/HCPCS: 99212 ==

== ENCOUNTER 2024-03-22 14:41 | Outpatient (AMB) | payer MEDICAID, SELFPAY ==
--- NOTE | 2024-03-22 14:57 | A.OFFVISCC_ITS ---
Intake Visit Reasons: MAT Office Allergies pineapple [Pineapple] Allergy (Unknown, Verified 08/06/23 15:07) HIVES naloxone Adverse Reaction (Intermediate, Verified 08/06/23 15:07) Vomiting Pineapples Allergy (Unknown, Uncoded 08/06/23 15:07) Unknown HPI HPI MAT Office: Details: Patient presents for follow up Currently prescribed Suboxone 8mg BID Tolerating current dose Regarding DM -has been checking BS regularly -has not seen providers since ED visit -PCP at [facility] -reports provider at [facility] gave him metformin 500mg tabs one year supply has not taken it in 2 weeks very challenging to follow patient as he was tangential T/W verbalized concern to patient regarding memory, inconsistency with appts, and overall change in presentation stressed that concern was not related to ?of drug use, but overall mental health Inquired if patient was experiencing AH or VH. He denied AH, but stated occasional VH, did not want to discuss further and quickly began to speak about an unrelated topic Patient called PCP office while in visit Per PCP office he missed appt in November for DM follow up Appt to be rescheduled by PCP district fire management officer [facility] Medical History KEO (generalized anxiety disorder) Opioid use disorder, severe, in early remission Cocaine use disorder Depression Opioid use disorder Social History Patient Tobacco Use Status: Current everyday Tobacco user Substance Use Type: Marijuana Review of Systems Const Reports as per HPI Physical Exam Const General: cooperative, healthy appearing and well groomed Psych Appearance: well kempt Speech and movement: Clear speech present Affect: Anxious affect present Attitude: cooperative Thought process: Circumstantial thought process present and Tangential thought process present Insight: Fair insight present (Psych) Judgement: Good judgement present (Psych) Assessment & Plan Assessment & Plan (1) Opioid use disorder, severe, in sustained remission: Code(s): F11.21 - Opioid dependence, in remission Category: Medical Plan: * continue suboxone at current dose * concern related to behavioral health presentation * follow up 4 weeks or sooner Medications: Refilled hydroxyzine HCl 25 mg PO TID PRN 90 tabs 0RF anxiety
== END 2024-03-22 15:29 | disposition home or self-care (01) ==
LOC: HO.HCC 14:42
PROVIDERS: Visit Provider Nurse Practitioner Psychiatric/Mental Health
DX: F11.21 Opioid dependence, in remission (principal)
CPT/HCPCS: 99214

== ENCOUNTER → 2024-03-22 14:41 | Outpatient (BNVA) | payer MEDICAID, SELFPAY | PROVIDERS: Visit Provider Nurse Practitioner Psychiatric/Mental Health | DX: F11.21 Opioid dependence, in remission (principal) | CPT/HCPCS: 99212 ==

== ENCOUNTER 2024-05-19 11:36 | Outpatient (AMB) | payer MEDICAID, SELFPAY ==
[2024-05-19 11:00] VITALS: BP 106/78; PULSE 80; O2SAT 97
--- OUTSIDE RECORDS SUMMARY | 2024-05-19 11:38 | XMS_ITS | Patient Health Record ---
Author Organization [facility] Address [address], [place] [id number] Care Team Providers Care Gas Mask Inspector Name Role Phone [facility] Primary Care Provider Un available [facility], [facility] Unavailable [phone] Rosangela Carson Unavailable [phone] Reason For Referral No Information Encounters Encounter Location Date Provider Diagnosis [facility] [address] [place] [address] 05/27/2023 Rosangela Carson Plan Of Treatment No Information
--- OUTSIDE RECORDS SUMMARY | 2024-05-19 11:38 | XMS_ITS ---
Author Organization [facility] Address [address], [place] [id number] Care Team Providers Care Site Auditor Name Role Phone [facility] Primary Care Provider Un available [facility] Samia Unavailable [phone] Rosangela Carson Unavailable [phone] REASON FOR VISIT Apply for [employer] Insurance Encounters Encounter Location Date Provider Diagnosis [facility] [address] [place] [address] 05/27/2023 Rosangela Carson Plan Of Treatment No Information Progress Notes * Edgar TURNERDOB: 3 (32 yo M)Acc No.[id number]:05/27/2023 Case Management New Patient:?Edgar Turner Provider:?Rosangela Carson :1990???Age:32 Y???Sex:Male Carlo e:05/27/2023 Address:[address] [id number] Pcp:[facility] Subjective: * Chief Complaints: * ???1. Apply for [employer] Insurance. * HPI: ???Social Service:?Action Taken?[employer]? Correlor paper application was completed with client and faxed over to [facility] center. 05/27/23 gd2.? Objective: Assessment: Plan: * Treatment: * Images: Billing Information: * Visit Code:? * Procedure Codes:? Care Plan Details* * Sign off status: Completed true * Provider:?Rosangela Carson Date:?05/27/2023 Generated for Efrem hernandez/Brenton/eTransmitting on:?05/19/2024 11:38 AM EST History and Physical Notes * HPI (History of Present Illness) Category Sub-Category Detail Notes Social Service Action Taken [facility] : [facility] p aper application was completed with client and faxed over to Enrolment center. 05/27/23 gd2
--- NOTE | 2024-05-19 11:40 | A.OFFVISCC_ITS ---
Vital Signs 05/19/24 11:00 BP 106/78 Blood Pressure Location Rt brachial Position Sitting Pulse 80 Pulse Source Pulse Oximeter Pulse Oximetry (%) 97 Intake Visit Reasons: MAT Office Allergies pineapple [Pineapple] Allergy (Unknown, Verified 08/06/23 15:07) HIVES naloxone Adverse Reaction (Intermediate, Verified 08/06/23 15:07) Vomiting Pineapples Allergy (Unknown, Uncoded 08/06/23 15:07) Unknown HPI HPI MAT Office: Details: Patient presents for follow up Currently prescribed suboxone 8mg BID working at [employer] kerrie continues to abstain from substance use Reporting ongoing anxiety and needing more hydroxyzine Discussed cutting down on that as he is feeling sleepy when driving--advised not to take this medicaiton unless he is hoem for the evening Has not seen primary care since DM dx, checking blood sugars and taking metformin reports he lost 30 lbs has been managing meals and exercising BP 106/78 pulse 80 02 97 Review of Systems Const Reports as per HPI and Reports no additional complaints Physical Exam Const General: cooperative, healthy appearing and well groomed Nutritional Appearance: overweight Orientation/consciousness: patient oriented x3 Limitations: no limitations Neuro General: patient oriented x3 Psych Appearance: well kempt Speech and movement: Normal speech and movement present Affect: normal affect Attitude: cooperative Thought process: Circumstantial thought process present Thought content: Normal thought content present Insight: Fair insight present (Psych) Judgement: Fair judgement present (Psych) Assessment & Plan Assessment & Plan (1) Opioid use disorder, severe, in sustained remission: Code(s): F11.21 - Opioid dependence, in remission Category: Medical Plan: * continue suboxone at current dose * next refill on hydrozxyzine will only be for one tab daily due to reported sedation * will ask RN to assist with getting patient into to see primary care for DM check in. * follow up 4 weeks Medications: New escitalopram oxalate 5 mg PO DAILY 30 tabs 1RF PFSH Medical History KEO (generalized anxiety disorder) Opioid use disorder, severe, in early remission Cocaine use disorder Depression Opioid use disorder Social History Patient Tobacco Use Status: Current everyday Tobacco user Substance Use Type: Marijuana
== END 2024-05-19 11:58 | disposition home or self-care (01) ==
PROVIDERS: Visit Provider Nurse Practitioner Psychiatric/Mental Health
DX: F11.21 Opioid dependence, in remission (principal)
CPT/HCPCS: 99214

== ENCOUNTER → 2024-05-19 11:36 | Outpatient (BNVA) | payer MEDICAID, SELFPAY | PROVIDERS: Visit Provider Nurse Practitioner Psychiatric/Mental Health | DX: F11.21 Opioid dependence, in remission (principal); Z51.81 Encounter for therapeutic drug level monitoring | CPT/HCPCS: 99212 ==

== ENCOUNTER 2024-07-17 14:50 | Outpatient (AMB) | payer MEDICAID, SELFPAY ==
--- NOTE | 2024-07-17 15:33 | MHC.AM.SUB ---
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 [employer] Reports that he will see PCP on and sleep study Wednesday Has cut down on hydroxyzine--advised that plan should be to taper off due to sedating effects Review of Systems Const Reports as per HPI and Reports difficulty sleeping Psych Reports anxiety and Reports difficulty concentrating Physical Exam Const General: cooperative, healthy appearing and well groomed Nutritional Appearance: overweight Orientation/consciousness: patient oriented x3 Limitations: no limitations Neuro General: patient oriented x3 Psych Appearance: well kempt Speech and movement: Normal speech and movement present Affect: normal affect Attitude: cooperative Thought process: Circumstantial thought process present Thought content: Normal thought content present Insight: Fair insight present (Psych) Judgement: Fair judgement present (Psych) [facility] Medical History KEO (generalized anxiety disorder) Opioid use disorder, severe, in early remission Cocaine use disorder Depression Opioid use disorder Social History Patient Tobacco Use Status: Current everyday Tobacco user Substance Use Type: Marijuana Assessment & Plan Assessment & Plan (1) Opioid use disorder, severe, in sustained remission: Code(s): F11.21 - Opioid dependence, in remission Category: Medical Plan: continue suboxone at current dose follow up 4 weeks
--- OUTSIDE RECORDS SUMMARY | 2024-07-17 17:07 | XMS_ITS | Clinical Summary ---
Author Organization [employer] Address [address] [facility] [address] [place] [address] Care Team Providers Care Distribution Sales Representative Name Role Phone Kat Barry MD Primary Care Provider [phone] Allergies Active Allergy Reactions Criticality Noted Date Comments Buddy 09/15/2023 Medications loratadine (Claritin) 10 MG tablet Take 10 mg by mouth Once per day. Active hydrOXYzine HCl (Atarax) 25 MG tablet Take 25 mg by mouth every 8 (eight) hours if needed for itching. Active buprenorphine-n aloxone (Suboxone) 2-0.[address] under the tongue. Active FREESTYLE LITE test strip For glucose monitoring 3 times a day 100 each 4 11/26/19 25 Active metFORMIN, MOD, (Glumetza) 1000 MG 24 hr tablet Take 1 tablet (1,000 mg) by mouth with breakfast and with evening meal. Do not crush, chew, or split. 60 tablet 4 11/26/19 25 Active insulin glargine (Lantus SoloStar) 100 UNIT/ML pen Inject 15 Units under the skin at bedtime. 4.5 mL 4 11/26/19 25 Active pen needle 32G x 4 mm misc Use as instructed 100 each 4 11/26/19 25 Active Continuous Glucose Training Systems Officer (FreeStyle Neelima 2 [place]) device Scan sensor every 8 hours 1 each 4 Active Continuous Glucose Sensor (FreeStyle Neelima 2 Sensor) misc Apply 1 sensor every 14 days 2 each 4 Active Active Problems Problem Noted Date Diagnosed Date Type 2 diabetes mellitus wit h hyperglycemia, without long-term current use of insulin 11/26/2023 Palpitation 09/15/2023 Anxiety 09/15/2023 Overview (09/15/2023): He follows with Psych at [place] Stable Sleep apnea 09/15/2023 Family History Relation Name Status Comments Father Tracy Aparicio Mother DM Social History Tobacco Use Types Packs/Day Years Used Date Smoking Tobacco: Every Day Cigarettes Tobacco Cessation:Ready to Q uit: Not Asked; Counseling Given: Not Answered Depression Answer Date Recorded Patient Health Questionnaire-9 Score 25 09/15/2023 Patient Health Questionnaire-9 Score 25 09/15/2023 Last PHQ-9: Questionnaire Data Not on file 0 09/15/2023 Housing Stability Answer Date Recorded What is your housing situation today? I have kaz aldridge 09/09/[address] you li ve. Do you have problems with any of the following? None of the above 09/09/2023 Food Insecurity Answer Date Recorded Within the past 12 months, y ou worried that your food would run out before you got money to buy more: Never True 09/09/2023 Within the past 12 months,th e food you bought just didn't last and you didn't have enough money to get more: Never True Transportation Answer Date Recorded In the past 12 months, has l ack of transportation kept you from medical appts, meetings, work or from getting things needed for daily living? No 09/09/2023 Utilities Answer Date Recorded In the past 12 months, has t he electric, gas, oil or water company threatened to shut off services in your home? No 09/09/2023 Depression Answer Date Recorded Patient Health Questionnaire-2 Score 6 09/15/2023 Sex and Gender Information Value Date Recorded Sex Assigned at Male 09/08/2023 9:51 AM EDT Legal Sex Male 9:50 AM EDT Gender Identity Male 09/15/2023 9:34 AM EDT Sexual Orientation Don't know 09/15/2023 9: 35 AM EDT Last Filed Vital Signs Vital Sign Reading Time Taken Comments Blood Pressure 129/76 11/26/2023 8:45 AM EDT Pulse 74 11/26/2023 8:45 AM EDT Temperature 36.1 ??C (97 ??F) 11/26/2023 8:45 AM EDT Respiratory Rate 20 11/26/2023 8:45 AM EDT Oxygen Saturation 94% 11/26/2023 8:45 AM EDT Inhaled Oxygen Concentration - - Weight 108 kg (237 lb) 11/26/2023 8:45 AM EDT Height 177.8 cm (5' 10 ) 11/26/2023 8:45 AM EDT Body Mass Index 34.01 11/26/2023 8:45 AM EDT Plan of Treatment Health Maintenance Due Date Last Done Comments HIV Screening 1992 Lipid Panel 1992 Diabetes: Foot Exam 2002 Eye Exam 2002 Alcohol/Substance Use Screening 2004 Family Planning (PISQ) 2007 Hepatitis C Screening 2010 Diabetes: Urine Protein Screening 2011 Hepatitis A Vaccines (1 of 2 - Risk 2-dose series) 2011 Hepatitis B Vaccines (1 of 3 - 19+ 3-dose series) 2011 Pneumococcal Vaccine: Pediatrics (0 to 5 Years) and At-Risk Patients (6 to 49) Years) (1 of 2 - PCV) 2011 COVID-19 Vaccine ( - 2023-2 5 season) 2024 Influenza Vaccine (#1) 2024 Diabetes: Hemoglobin A1C 02/26/2024 11/26/2023 Depression Monitoring (PHQ-9) 03/16/2024, 09/15/2023 SDOH Screening 09/08/2024 09/09/2023 Depression Screening 09/14/2024 09/15/2023, 09/15/2023 Tobacco Screening 11/25/2024 11/26/2023 DTaP/Tdap/Td Vaccines (2 - T d or Tdap) 09/01/2032 09/01/2022 Zoster Vaccines (1 of 2) 2042 RSV Patients and Patients Aged 60 years or older (1 - 1-dose 75+ series) 2067 HIB Vaccines Aged Out No longer eligi ble based on patient's age to complete this topic HPV Vaccines Aged Out No longer eligi ble based on patient's age to complete this topic IPV Vaccines Aged Out No longer eligi ble based on patient's age to complete this topic Meningococcal Vaccine Aged Out No gisele mayo eligible based on patient's age to complete this topic RSV under 20 months Aged Out No longe r eligible based on patient's age to complete this topic Rotavirus Vaccines Aged Out No longer eligible based on patient's age to complete this topic Procedures Procedure Name Priority Date/Time Associated Diagnosis Comments POCT GLYCATED HEMOGLOBIN, TOTAL Routine 11/26/2023 9:54 AM EDT Type 2 diabetes mellitus with hyperglycemia, without long-term current use of insulin ([facility]) from Last 3 Months or Most Recently Relevant to Health Maintenance Results * (ABNORMAL) POCT HGB A1C (11/26/2023 9:54 AM EDT) Hemoglobin A1C 14.0(A) 4.0 - 6.0 % QC Media Lot # [id number] Lot# Expiration Date [id number] Blood 11/26/2023 9:54 AM EDT Corey Burton MD POINT OF CARE TEST ENTER/EDIT ORDERABLES Final Result from Last 3 Months or Most Recently Relevant to Health Maintenance Insurance [facility] C3 Care Teams Distribution Sales Representative Relationship Specialty Start Date End Date Kat Barry MD [address] [place] [id number] PCP - General Family Medicine 09/15/23
--- OUTSIDE RECORDS SUMMARY | 2024-07-17 17:07 | XMS_ITS ---
Author Organization [facility] Address [address] [place], [place] [id number] Care Team Providers Care Floor Care Technician Name Role Phone [facility] Primary Care Provider Un available [facility] Samia Unavailable [phone] Rosangela Carson Unavailable [phone] REASON FOR VISIT Apply for [employer] Insurance Encounters Encounter Location Date Provider Diagnosis [facility] [address] [place] [address] 05/27/2023 Rosangela Carson Plan Of Treatment No Information Progress Notes * Edgar TURNERDOB: 3 (32 yo M)Acc No.[id number]:05/27/2023 Case Management New Patient:?Edgar Turner Provider:?Rosangela Carson :1990???Age:32 Y???Sex:Male Carlo e:05/27/2023 Address:[address] [place] [id number] Pcp:[facility] Subjective: * Chief Complaints: * ???1. Apply for [employer] Insurance. * HPI: ???Social Service:?Action Taken?[employer]? [employer] paper application was completed with client and faxed over to [facility] center. 05/27/23 gd2.? Objective: Assessment: Plan: * Treatment: * Images: Billing Information: * Visit Code:? * Procedure Codes:? Care Plan Details* * Sign off status: Completed true * Provider:?Rosangela Carson Date:?05/27/2023 Generated for Efrem hernandez/Brenton/eTransmitting on:?07/17/2024 05:07 PM EST History and Physical Notes * HPI (History of Present Illness) Category Sub-Category Detail Notes Social Service Action Taken [facility] : [facility] p aper application was completed with client and faxed over to Enrolment center. 05/27/23 gd2
--- OUTSIDE RECORDS SUMMARY | 2024-07-17 17:08 | XMS_ITS | Patient Health Record ---
Author Organization [facility] Address [address] [place], [place] [id number] Care Team Providers Care Possum Trapper Name Role Phone [facility] Primary Care Provider Un available [facility] Unavailable [phone] Reason For Referral No Information Plan Of Treatment No Information
== END 2024-07-17 15:46 | disposition home or self-care (01) ==
PROVIDERS: Visit Provider Nurse Practitioner Psychiatric/Mental Health
DX: F11.21 Opioid dependence, in remission (principal)
CPT/HCPCS: 99213

== ENCOUNTER → 2024-07-17 14:50 | Outpatient (BNVA) | payer MEDICAID, SELFPAY | PROVIDERS: Visit Provider Nurse Practitioner Psychiatric/Mental Health | DX: F11.21 Opioid dependence, in remission (principal); F14.20 Cocaine dependence, uncomplicated; F41.1 Generalized anxiety disorder; Z79.899 Other long term (current) drug therapy | CPT/HCPCS: 99212 ==

== ENCOUNTER → 2024-10-09 13:43 | Outpatient (BNVA) | payer MEDICAID, SELFPAY | PROVIDERS: Visit Provider Internal Medicine | DX: F11.21 Opioid dependence, in remission (principal) | CPT/HCPCS: 99212 ==

== ENCOUNTER 2024-10-09 15:54 | Outpatient (AMB) | payer SELFPAY ==
--- OUTSIDE RECORDS SUMMARY | 2024-10-09 15:57 | XMS_ITS | Clinical Summary ---
Author Organization [employer] Address [address] [facility] [address] [place] [address] Care Team Providers Care Electroencephalograph Technician Name Role Phone Kat Barry MD Primary Care Provider [phone] Allergies Active Allergy Reactions Criticality Noted Date [...] monitoring 3 times a day 100 each 12 4 11/26/19 25 Active metFORMIN, MOD, (Glumetza) [...] each 4 11/26/19 25 Active Continuous Glucose Textile Conservator (FreeStyle Neelima 2 [place]) device Scan sensor every 8 hours 1 each 4 Active Continuous Glucose Sensor (FreeStyle Neelima 2 Sensor) misc Apply 1 sensor every 14 days 2 each 4 Active Active Problems Problem Noted Date Diagnosed Date Type 2 diabetes mellitus wit h hyperglycemia, without long-term current use of insulin 11/26/2023 Palpitation 09/15/2023 Anxiety 09/15/2023 Overview (09/15/2023): He follows with Psych at [place] Stable Sleep apnea 09/15/2023 Encounters Date Type Department Care Team Description 08/24/2024 Telephone [facility] [address] [place] [address] Merle Delgado, PharmD 08/04/2024 Population Health Risk Score [facility] () Department [address] [address] Provider, Population Health Generic from Last 3 Months Family History Relation Name Status Comments Father Pulm Disea Mother DM Social History Tobacco Use Types [...] 2010 Diabetes: Urine Protein Screening 2011 Hepatitis B Vaccines (1 of 3 - 19+ 3-dose series) 2011 Pneumococcal Vaccine: Pediatrics (0 to 5 Years) and At-Risk Patients (6 to 49) Years) (1 of 2 - PCV) 2011 COVID-19 Vaccine ( - 2023-2 5 season) 2024 Influenza Vaccine (#1) 2024 Diabetes: Hemoglobin A1C 02/26/2024 11/26/2023 SDOH Screening 09/08/2024 09/09/2023 Depression Screening 09/14/2024 [...] on patient's age to complete this topic Hepatitis A Vaccines Aged Out No long er eligible based on patient's age to complete this topic IPV Vaccines Aged Out No longer eligi ble based on patient's age to complete this topic Meningococcal B Vaccine Aged Out No l onger eligible based on patient's age to complete [...] hyperglycemia, without long-term current use of insulin ([facility]) from Last 3 Months or Most Recently Relevant to Health Maintenance Results * (ABNORMAL) POCT HGB A1C (11/26/2023 9:54 AM EDT) Hemoglobin A1C 14.0(A) 4.0 - 6.0 % QC Media Lot # [id number] Lot# Expiration Date [id number] Blood 11/26/2023 9:54 AM EDT Corey Burton MD POINT OF CARE TEST ENTER/EDIT ORDERABLES Final Result from Last 3 Months or Most Recently Relevant to Health Maintenance Insurance [facility] C3 Care Teams Electroencephalograph Technician Relationship Specialty Start Date End Date Kat Barry MD [address] [place] [id number] PCP - General Family Medicine 09/15/23
--- OUTSIDE RECORDS SUMMARY | 2024-10-09 15:57 | XMS_ITS | Patient Health Record ---
Author Organization [facility] Address [address], [place] [id number] Care Team Providers Care Health And Safety Coordinator Name Role Phone [facility] Primary Care Provider Un available [facility], [facility] Unavailable [phone] Reason For Referral No Information Plan Of Treatment No Information
--- NOTE | 2024-10-09 16:01 | A.OFFVIS_ITS ---
Vital Signs 10/09/24 16:10 Pulse 80 Pulse Source Pulse Oximeter Pulse Oximetry (%) 95 Oxygen Delivery Method Room Air Intake Visit Reasons: MAT Allergies pineapple [Pineapple] Allergy (Unknown, Verified 10/09/24 16:10) HIVES naloxone Adverse Reaction (Intermediate, Verified 10/09/24 16:10) Vomiting Pineapples Allergy (Unknown, Uncoded 08/06/23 15:07) Unknown HPI HPI MAT: Details: He is doing well HPI Comments Details: He is doing well. He has no complaints. He takes Suboxone 8/2 bid,60 and one refill. 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 COUNT INCLUDES THE [facility] Medical History KEO (generalized anxiety disorder) Opioid use disorder, severe, in early remission Cocaine use disorder Depression Opioid use disorder Social History Patient Tobacco Use Status: Current everyday Tobacco user Substance Use Type: Marijuana Review of Systems Const All systems reviewed & are unremarkable except as noted in HPI and below Physical Exam Vital Signs: Last Vital Signs Pulse 80 10/09/24 16:10 Pulse Ox 95 10/09/24 16:10 Oxygen Delivery Method Room Air 10/09/24 16:10 Const General: cooperative Assessment & Plan Assessment & Plan (1) Opioid use disorder, severe, in sustained remission: Comment: He is doing well Code(s): F11.21 - Opioid dependence, in remission Category: Medical Plan: Suboxone 8/2 bid,60 and one refill. Colace Hydroxyzine See in two months. Medications: New docusate sodium (Colace) 100 mg PO BID 30 days 60 caps 11RF buprenorphine HCl 8 mg sublingual BID 30 days 60 tabs 1RF hydroxyzine HCl 25 mg PO TID 30 days PRN 90 tabs 1RF itching Coding Level of Care Code Est Pt Level 3 (52389) Diagnoses Opioid use disorder, severe, in sustained remission F11.21
[2024-10-09 16:10] VITALS: PULSE 80; O2SAT 95
== END 2024-10-09 18:45 | disposition home or self-care (01) ==
PROVIDERS: Visit Provider Internal Medicine
DX: F11.21 Opioid dependence, in remission (principal)
CPT/HCPCS: 99213

== ENCOUNTER 2024-12-11 09:35 | Outpatient (AMB) | payer SELFPAY ==
[2024-12-11 09:40] VITALS: BP 106/60; PULSE 74; O2SAT 96
--- NOTE | 2024-12-11 09:40 | A.OFFVIS_ITS ---
Vital Signs 12/11/24 09:40 Weight 230 lb BP 106/60 Pulse 74 Pulse Oximetry (%) 96 Intake Visit Reasons: MAT Allergies pineapple (Pineapple) Allergy (Unknown, Verified 12/11/24 09:41) HIVES naloxone Adverse Reaction (Intermediate, Verified 12/11/24 09:41) Vomiting Pineapples Allergy (Unknown, Uncoded 12/11/24 09:41) Unknown HPI Comments Details: The patient is a 34-year-old who presents for a follow-up visit for MARTHA in remission and reports feeling stable on buprenorphine-naloxone 8-2 mg tablets, BID. 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 The patient mentioned being stable in personal life, staying within his family [place], and not engaging with external social activity. He dedicates significant time to his children and family. Regarding past mental health services, the patient expressed regret over missed appointments leading to discharge from [facility], and is open to revisiting therapy options. The patient denied current alcohol or opioid use, but stated he smokes cigarettes at a reduced rate compared to before. The patient discussed previous encounters with mental health professionals, mentioning a lapse in appointments due to work commitments. [facility] Medical History KEO (generalized anxiety disorder) Opioid use disorder, severe, in early remission Cocaine use disorder Depression Opioid use disorder Social History Patient Tobacco Use Status: Current everyday Tobacco user Substance Use Type: Marijuana Review of Systems Const All systems reviewed & are unremarkable except as noted in HPI and below Physical Exam Vital Signs: Last Vital Signs Pulse 74 12/11/24 09:40 BP 106/60 12/11/24 09:40 Pulse Ox 96 12/11/24 09:40 Const General: cooperative Psych Other: Denies suicidal and homicidal ideation. Appearance: well kempt Mental Status: mental status grossly normal Speech and movement: Clear speech present Affect: Sad affect present Attitude: cooperative Thought process: Normal thought process present Thought content: Normal thought content present Insight: Good insight present (Psych) Judgement: Good judgement present (Psych) Assessment & Plan Assessment & Plan (1) Opioid use disorder, severe, in sustained remission: Comment: He is doing well Code(s): F11.21 - Opioid dependence, in remission Category: Medical (2) Moderate major depression: Code(s): F32.1 - Major depressive disorder, single episode, moderate Category: Medical Plan The plan of care is to continue on buprenorphine-naloxone 8-2 mg tablets twice per day and start escitalopram 5 mg, daily for symptoms of depression. Medications: New escitalopram oxalate Take one tablet by mouth daily. 5 mg PO DAILY 30 tabs 0RF 30 days Changed From buprenorphine HCl 8 mg sublingual BID 60 tabs 0RF To buprenorphine HCl Take one tablet sublingual twice per day. 8 mg sublingual BID 60 tabs 1RF Patient Instructions: - Continue with buprenorphine-naloxone 8-2 mg, tablets twice per day. - Start taking escitalopram 5 mg once daily. - Monitor how you feel over the next few weeks and report any side effects. - Reduce cigarette smoking further, aiming to quit if possible. - Follow up in two months and/or call with questions or concerns. - Contact behavioral health services for therapy options, in the area such as [facility], [facility]. - The patient verbalized understanding and agreed with plan of care. Scribe Plan - Not visible on output: Patient was informed and verbally consented to the use of an ambient scribe for clinical note documentation during this visit. Coding Level of Care Code Est Pt Level 4 (31206) Diagnoses Opioid use disorder, severe, in sustained remission F11.21 Moderate major depression F32.1
--- OUTSIDE RECORDS SUMMARY | 2024-12-11 10:08 | XMS_ITS | Patient Health Record ---
Author Organization [facility] Address [address], [place] [id number] Care Team Providers Care Still Photographer Name Role Phone [facility] Primary Care Provider Un available [facility] Unavailable [phone] Reason For Referral No Information Plan Of Treatment No Information
--- OUTSIDE RECORDS SUMMARY | 2024-12-11 10:08 | XMS_ITS | Clinical Summary ---
Author Organization [employer] [facility] Address [address] [place] [address] Care Team Providers Care Latex Caster Name Role Phone Kat Barry MD Primary Care Provider [phone] Allergies Active Allergy Reactions Criticality Noted Date Comments Buddy 09/15/2023 Medications loratadine (Claritin) 10 MG tablet Take 10 mg by mouth Once per day. Active hydrOXYzine HCl (Atarax) 25 MG tablet Take 25 mg by mouth every 8 (eight) hours if needed for itching. Active buprenorphine-n aloxone (Suboxone) 2-0.[address] under the tongue. Active metFORMIN, MOD, (Glumetza) 1000 MG 24 hr tablet Take 1 tablet (1,000 mg) by mouth with breakfast and with evening meal. Do not crush, chew, or split. 60 tablet 11 4 Active insulin glargine (Lantus SoloStar) 100 UNIT/ML pen Inject 15 Units under the skin at bedtime. 4.5 mL 11 4 Active Continuous Glucose Press Reader (FreeStyle Neelima 2 [place]) device Scan sensor every 8 hours 1 each 4 Active Continuous Glucose Sensor (FreeStyle Neelima 2 Sensor) mis Apply 1 sensor every 14 days 2 each 4 Active FREESTYLE LITE test strip For glucose monitoring 3 times a day 100 each 12 4 11/26/19 25 pen needle 32G x 4 mm misc Use as instructed 100 each 4 11/26/19 25 Active Problems Problem Noted Date Diagnosed Date Type 2 diabetes mellitus wit h hyperglycemia, without long-term current use of insulin 11/26/2023 Palpitation 09/15/2023 Anxiety 09/15/2023 Overview (09/15/2023): He follows with Psych at [place] Stable Sleep apnea 09/15/2023 Family History Relation [...] 74 11/26/2023 8:45 AM EDT Temperature 36.1 C (97 F) 11/26/2023 8:45 AM EDT Respiratory Rate 20 [...] Comments HIV Screening 1992 Lipid Panel 1992 Disability Screening 1992 Diabetes: Foot Exam 2002 Eye Exam 2002 Alcohol/Substance Use Screening 2004 Family Planning (PISQ) 2007 HPV Vaccines (1 - Male 3-dos e series) 2007 Hepatitis C Screening 2010 Diabetes: Urine Protein Screening 2011 Hepatitis B Vaccines (1 of 3 - 19+ 3-dose series) 2011 Pneumococcal Vaccine: Pediatrics (0 to 5 Years) and At-Risk Patients (6 to 49) Years (1 of 2 - PCV) 2011 COVID-19 Vaccine (1 - 2023-2 5 season) 2024 Diabetes: Hemoglobin A1C 02/26/2024 11/26/2023 Depression Monitoring 03/16/2024 09/15/2023 , 09/15/2023 SDOH Screening 09/08/2024 09/09/2023 Tobacco Screening 11/25/2024 11/26/2023 Influenza Vaccine (#1) 2025 DTaP/Tdap/Td Vaccines (2 - T d or [...] hyperglycemia, without long-term current use of insulin ([facility]) from Last 3 Months or Most Recently Relevant to Health Maintenance Results * (ABNORMAL) POCT HGB A1C (11/26/2023 9:54 AM EDT) Hemoglobin A1C 14.0(A) 4.0 - 6.0 % QC Media Lot # [id number] Lot# Expiration Date ,[id number] Blood 11/26/2023 9:54 AM EDT Corey Burton MD POINT OF CARE TEST ENTER/EDIT ORDERABLES Final Result from Last 3 Months or Most Recently Relevant to Health Maintenance Insurance [facility] C3 Care Teams Latex Caster Relationship Specialty Start Date End Date Kat Barry MD [address] [place] [address] PCP - General Family Medicine 09/15/23
== END 2024-12-11 09:53 | disposition home or self-care (01) ==
LOC: HO.HCC 09:35
PROVIDERS: Visit Provider Clinical Nurse Specialist Psychiatric/Mental Health
DX: F11.21 Opioid dependence, in remission (principal); F32.1 Major depressive disorder, single episode, moderate
CPT/HCPCS: 99214

== ENCOUNTER → 2024-12-11 09:35 | Outpatient (BNVA) | payer SELFPAY | PROVIDERS: Visit Provider Clinical Nurse Specialist Psychiatric/Mental Health | DX: F11.21 Opioid dependence, in remission (principal); F32.1 Major depressive disorder, single episode, moderate | CPT/HCPCS: 99212 ==

== ENCOUNTER 2025-02-09 11:35 | Outpatient (AMB) | payer SELFPAY ==
--- NOTE | 2025-02-09 11:42 | MHC.OFFVIS ---
Vital Signs 02/09/25 11:45 Height 5 ft 10 in Weight 230 lb BMI 33.0 Pulse 66 Pulse Source Pulse Oximeter Pulse Oximetry (%) 95 Oxygen Delivery Method Room Air Intake Visit Reasons: MAT Allergies pineapple (Pineapple) Allergy (Unknown, Verified 02/09/25 11:45) HIVES naloxone Adverse Reaction (Intermediate, Verified 02/09/25 11:45) Vomiting Pineapples Allergy (Unknown, Uncoded 12/11/24 09:41) Unknown HPI Comments Details: History of Present Illness The patient is a 34-year-old male presenting with Opioid Use Disorder management. He disclosed an early depletion of his prescribed Suboxone dose, which was self-adjusted to three per day, attributing better symptom control to this regimen. Currently, there are no reports of withdrawal, suicidal ideation, or adverse effects associated with medication. He has expressed willingness to pursue counseling if necessary, though does not believe it is currently warranted. His vital signs remain stable. Review of Systems - Psychiatric: Denies suicidal ideation, denies homicidal ideation. - General: Reports stable vital signs. Physical Exam Results Plan Patient was informed and verbally consented to the use of an ambient scribe for clinic note documentation during this visit. 1. Opioid use, unspecified, uncomplicated F11.90 The patient's management plan includes Suboxone adjusted to three tablets daily because of better symptom control, totaling 90 tablets. Continuous evaluation for potential counseling will occur, and follow-up is scheduled in one month. Discussion Notes I explained to the patient the adjustment in his Suboxone dosage to three tablets per day to better manage his symptoms and prevent early depletion based on his feedback. We discussed the benefits of improved symptom control and addressed the possibility of counseling if required in the future. The patient agreed to proceed with this plan, and a follow-up visit in one month was arranged to assess his progression and adjust the treatment strategy accordingly. Medical Decision Making In managing this patient with Opioid Use Disorder, I have opted to adjust his Suboxone regimen based on his feedback regarding improved symptom control. This adjustment aims to achieve better management of cravings and withdrawal symptoms without the need for additional interventions at this time. The plan includes follow-up in one month to reassess his needs for ongoing dosage, counseling, or other interventions. Patient Instructions - Take Suboxone three times a day as prescribed. - Return in one month for a follow-up visit. - Seek counseling if you feel it is needed before your next appointment. - Contact the office if you experience any adverse effects or increased symptoms. [facility] Medical History KEO (generalized anxiety disorder) Opioid use disorder, severe, in early remission Cocaine use disorder Depression Opioid use disorder Social History Patient Tobacco Use Status: Current everyday Tobacco user Substance Use Type: Marijuana Physical Exam Vital Signs: Last Vital Signs Pulse 66 02/09/25 11:45 Pulse Ox 95 02/09/25 11:45 Oxygen Delivery Method Room Air 02/09/25 11:45 BMI result Body Mass Index 33.0 Assessment & Plan Assessment & Plan (1) Opioid use disorder, severe, in sustained remission: Comment: He is doing well Code(s): F11.21 - Opioid dependence, in remission Category: Medical Plan n/a Medications: New buprenorphine HCl 8 mg sublingual TID 90 tabs 0RF 30 days Discontinued buprenorphine HCl Take one tablet sublingual twice per day. Discontinued Reason: None 8 mg sublingual BID 60 tabs 1RF Coding Level of Care Code Est Pt Level 3 (11141) Diagnoses Opioid use disorder, severe, in sustained remission F11.21
[2025-02-09 11:45] VITALS: PULSE 66; O2SAT 95; BMI 33.0
--- OUTSIDE RECORDS SUMMARY | 2025-02-09 12:10 | XMS_ITS | Patient Health Record ---
Author Organization [facility] Address [address] [place] [address] Care Team Providers Care Costumer Name Role Phone [facility] Primary Care Provider [facility] Unavailable [phone] Reason For Referral No Information Plan Of Treatment No Information
--- OUTSIDE RECORDS SUMMARY | 2025-02-09 12:10 | XMS_ITS | Clinical Summary ---
Author Organization [employer] [facility] Address [address] [place] [address] Care Team Providers Care Souvenir And Novelty Maker Name Role Phone Mele Cortez REBECCA Primary Care Provider [phone] Allergies Active Allergy Reactions Criticality Noted Date [...] 4.5 mL 11 4 Active Continuous Glucose Bar Assistant (FreeStyle Neelima 2 [place]) device Scan sensor every 8 hours 1 each 4 Active Continuous Glucose Sensor (FreeStyle Neelima 2 Sensor) mis Apply 1 sensor every 14 days 2 each 11 4 Active Active Problems Problem Noted Date Diagnosed Date Type 2 diabetes mellitus wit h hyperglycemia, without long-term current use of insulin 11/26/2023 Palpitation 09/15/2023 Anxiety 09/15/2023 Overview (09/15/2023): He follows with Psych at [place] Stable Sleep apnea 09/15/2023 Family History Relation [...] Years (1 of 2 - PCV) 2011 Diabetes: Hemoglobin A1C 02/26/2024 11/26/2023 Depression Monitoring 03/16/2024 09/15/2023 , 09/15/2023 SDOH Screening 09/08/2024 09/09/2023 Tobacco Screening 11/25/2024 11/26/2023 COVID-19 Vaccine (1 - 2023-2 5 season) 2025 Influenza Vaccine (#1) 2025 DTaP/Tdap/Td Vaccines (2 [...] hyperglycemia, without long-term current use of insulin ([facility]) from Last 3 Months or Most Recently Relevant to Health Maintenance Results * (ABNORMAL) POCT HGB A1C (11/26/2023 9:54 AM EDT) Hemoglobin A1C 14.0(A) 4.0 - 6.0 % QC Media Lot # [id number] Lot# Expiration Date [id number] Blood 11/26/2023 9:54 AM EDT Corey Burton MD POINT OF CARE TEST ENTER/EDIT ORDERABLES Final Result from Last 3 Months or Most Recently Relevant to Health Maintenance Insurance [facility] C3 Care Teams Souvenir And Novelty Maker Relationship Specialty Start Date End Date Mele Cortez CNP PCP - General Family Medicine 01/03/25
== END 2025-02-09 12:52 | disposition home or self-care (01) ==
LOC: HO.HCC 11:35
PROVIDERS: Visit Provider Internal Medicine
DX: F11.21 Opioid dependence, in remission (principal)
CPT/HCPCS: 99213

== ENCOUNTER → 2025-02-09 11:35 | Outpatient (BNVA) | payer SELFPAY | PROVIDERS: Visit Provider Internal Medicine | DX: F11.21 Opioid dependence, in remission (principal) | CPT/HCPCS: 99212 ==

== ENCOUNTER 2025-03-07 11:36 | Outpatient (AMB) | payer SELFPAY ==
[2025-03-07 11:41] VITALS: BP 144/82; PULSE 66; O2SAT 98
--- NOTE | 2025-03-07 11:41 | A.OFFVIS_ITS ---
Vital Signs 03/07/25 11:41 Height 5 ft 10 in BP 144/82 H Blood Pressure Location Rt brachial Position Sitting Pulse 66 Pulse Source Pulse Oximeter Pulse Oximetry (%) 98 Oxygen Delivery Method Room Air Intake Visit Reasons: mat visit Allergies pineapple (Pineapple) Allergy (Unknown, Verified 03/07/25 11:42) HIVES naloxone Adverse Reaction (Intermediate, Verified 03/07/25 11:42) Vomiting Pineapples Allergy (Unknown, Uncoded 12/11/24 09:41) Unknown HPI Comments Details: A 34-year-old male presents for a follow-up visit r/t MARTHA in sustained remission for past 3 years with buprenorphine 8 mg TID. Denies use of opiates, alcohol, and other substances. 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 The patient c/o symptoms of sleep apnea, not diagnosed. [facility] Medical History KEO (generalized anxiety disorder) Opioid use disorder, severe, in early remission Cocaine use disorder Depression Opioid use disorder Social History Patient Tobacco Use Status: Current everyday Tobacco user Substance Use Type: Marijuana Review of Systems Const All systems reviewed & are unremarkable except as noted in HPI and below Physical Exam Vital Signs: Last Vital Signs Pulse 66 03/07/25 11:41 BP 144/82 H 03/07/25 11:41 Pulse Ox 98 03/07/25 11:41 Oxygen Delivery Method Room Air 03/07/25 11:41 Const General: cooperative Assessment & Plan Assessment & Plan (1) Opioid use disorder, severe, in sustained remission: Comment: He is doing well Code(s): F11.21 - Opioid dependence, in remission Category: Medical Plan The plan of care is to continue with buprenorphine 8 mg TID, and hydroxyzine 25 mg TID, as needed for symptoms of anxiety. Encouraged to follow-up with PCP for a referral to a sleep study. Follow-up in 3 months or sooner if needed. Medications: Changed From hydroxyzine HCl 25 mg PO TID 7 days PRN 21 tabs 0RF itching To hydroxyzine HCl Take 1 tablet 3 times per day as needed for symptoms of anxiety 25 mg PO TID PRN 90 tabs 0RF Anxiety 30 days Refilled buprenorphine HCl 8 mg sublingual TID 90 tabs 2RF 30 days Patient Instructions: - Continue with buprenorphine, and hydroxyzine as prescribed. - Follow-up with PCP for a referral-sleep study. - Follow-up in 3 months or sooner if needed. - Call with questions, concerns, or to report side effects/new onset of symptoms to [facility]. - The patient verbalized understanding and agreed with plan of care. Coding Level of Care Code Est Pt Level 3 (95625) Diagnoses Opioid use disorder, severe, in sustained remission F11.21
== END 2025-03-07 12:48 | disposition home or self-care (01) ==
LOC: HO.HCC 11:36
PROVIDERS: Visit Provider Clinical Nurse Specialist Psychiatric/Mental Health
DX: F11.21 Opioid dependence, in remission (principal)
CPT/HCPCS: 99213

== ENCOUNTER → 2025-03-07 11:36 | Outpatient (BNVA) | payer SELFPAY | PROVIDERS: Visit Provider Clinical Nurse Specialist Psychiatric/Mental Health | DX: F11.21 Opioid dependence, in remission (principal) | CPT/HCPCS: 99212 ==